=== PATIENT | female | born 1945 | race Caucasian/White ===

== ENCOUNTER 2017-10-27 17:31 | Inpatient (IN) | payer MEDICARE ==
[2017-10-27 18:22] LABS: ADD MAN DIFF? NO
[2017-10-27 18:24] LABS: BASO # 0.1 x10^3/uL (0.0-0.2); BASO % 1 % (0-3); EOS # 0.2 x10^3/uL (0.0-0.7); EOS % 4 % (0-3); HEMATOCRIT 35.7 % (36.0-47.0); HEMOGLOBIN 12.4 g/dL (12.0-15.5); LYMPH % 24 % (24-48); MEAN CORPUSCULAR HEMOGLOBIN 29 pg (25-35); MEAN CORPUSCULAR HGB CONC 35 g/dL (31-37); MEAN CORPUSCULAR VOLUME 84 fL (79-100); MONO # 0.5 x10^3/uL (0.0-1.1); MONO % 12 % (0-9); NEUT # 2.4 x10^3uL (1.8-7.7); NEUT % 58 % (31-73); PLATELET COUNT 407 x10^3/uL (140-400); RED BLOOD COUNT 4.26 x10^6/uL (3.50-5.40); RED CELL DISTRIBUTION WIDTH 12.6 % (11.5-14.5); WHITE BLOOD COUNT 4.2 x10^3/uL (4.0-11.0)
[2017-10-27 18:27] LABS: BILIRUBIN,URINE NEGATIVE (NEG); CLARITY,URINE CLEAR; GLUCOSE,URINE NEGATIVE (NEG); NITRITE,URINE NEGATIVE (NEG); PROTEIN,URINE NEGATIVE (NEG-TRACE); UROBILINOGEN,URINE 0.2 mg/dL (0.2 mg/dL)
[2017-10-27 18:33] LABS: COLOR,URINE STRAW
[2017-10-27 18:35] LABS: BACTERIA,URINE 0 /HPF (0-FEW); RBC,URINE 0 /HPF (0-2); SQUAMOUS EPITHELIAL CELL,UR FEW /LPF; WBC,URINE 0 /HPF (0-4)
[2017-10-27 18:37] LABS: ANION GAP 7 (6-14); BLOOD UREA NITROGEN 13 mg/dL (7-20); BUN/CREATININE RATIO 13 (6-20); CALCIUM 9.3 mg/dL (8.5-10.1); CARBON DIOXIDE 29 mmol/L (21-32); CHLORIDE 92 mmol/L (98-107); GFR 54.5; GLUCOSE 142 mg/dL (70-99); POTASSIUM 3.5 mmol/L (3.5-5.1); SODIUM 128 mmol/L (136-145)
[2017-10-27 18:42] LABS: ALBUMIN 3.5 g/dL (3.4-5.0); ALBUMIN/GLOBULIN RATIO 0.9 (1.0-1.7); ALK PHOS 61 U/L (46-116); ALT (SGPT) 17 U/L (14-59); AST (SGOT) 19 U/L (15-37); TOTAL BILIRUBIN 0.3 mg/dL (0.2-1.0); TOTAL PROTEIN 7.2 g/dL (6.4-8.2)
[2017-10-27 18:48] LABS: NT-PRO BNP 158 pg/mL (0-124)
[2017-10-27 18:52] LABS: TROPONINI < 0.017 ng/mL (0.000-0.055)
[2017-10-27] MEDS: MECLIZINE HCL 12.5 MG TABLET. PO (18:54)
[2017-10-27] MEDS: IV NORMAL SALINE 1000ML BAG 1,000 ML IV (19:56)
[2017-10-27] MEDS ORDERED: ONDANSETRON PF 4 MG/2 ML VIAL. IV (20:00)
[2017-10-27 20:03] LABS: THYROID STIM HORMONE (TSH) 2.904 uIU/mL (0.358-3.74)
[2017-10-28 04:25] LABS: ADD MAN DIFF? NO
[2017-10-28 04:30] LABS: BASO # 0.1 x10^3/uL (0.0-0.2); BASO % 1 % (0-3); EOS # 0.2 x10^3/uL (0.0-0.7); EOS % 5 % (0-3); HEMATOCRIT 35.6 % (36.0-47.0); HEMOGLOBIN 12.3 g/dL (12.0-15.5); LYMPH # 1.2 x10^3/uL (1.0-4.8); LYMPH % 29 % (24-48); MEAN CORPUSCULAR HEMOGLOBIN 29 pg (25-35); MEAN CORPUSCULAR HGB CONC 35 g/dL (31-37); MEAN CORPUSCULAR VOLUME 85 fL (79-100); MONO # 0.5 x10^3/uL (0.0-1.1); MONO % 14 % (0-9); NEUT % 51 % (31-73); PLATELET COUNT 410 x10^3/uL (140-400); RED BLOOD COUNT 4.21 x10^6/uL (3.50-5.40); RED CELL DISTRIBUTION WIDTH 12.9 % (11.5-14.5); WHITE BLOOD COUNT 3.9 x10^3/uL (4.0-11.0)
[2017-10-28 04:48] LABS: ANION GAP 7 (6-14); BLOOD UREA NITROGEN 9 mg/dL (7-20); CALCIUM 9.8 mg/dL (8.5-10.1); CARBON DIOXIDE 27 mmol/L (21-32); CHLORIDE 99 mmol/L (98-107); CREATININE 0.8 mg/dL (0.6-1.0); GFR 70.5; GLUCOSE 102 mg/dL (70-99); POTASSIUM 4.3 mmol/L (3.5-5.1); SODIUM 133 mmol/L (136-145)
[2017-10-28] MEDS: metroNIDAZOLE 500 MG TABLET PO ×3 (09:12→21:37)
[2017-10-28] MEDS: LEVOTHYROXINE 75 MCG TABLET PO (09:13)
[2017-10-28] MEDS: LOSARTAN POTASSIUM 50 MG TABLET. PO (09:13)
[2017-10-28] MEDS: CIPROFLOXACIN HCL 250 MG TABLET. PO ×2 (09:13→20:24)
[2017-10-28] MEDS: PANTOPRAZOLE 40 MG TABLET.DR. PO (12:13)
[2017-10-28] MEDS: FLUTICASONE 50MCG/NASAL SPRAY 16GM BOTTLE. NS (12:14)
[2017-10-28] MEDS: ATORVASTATIN CALCIUM 20 MG TABLET PO (20:23)
[2017-10-28] MEDS: LACTOBACILLUS RHAMNOSUS GG 1 CAPSULE. PO (20:24)
[2017-10-29] MEDS: LEVOTHYROXINE 75 MCG TABLET PO (06:21)
[2017-10-29] MEDS: metroNIDAZOLE 500 MG TABLET PO ×2 (06:21→13:31)
[2017-10-29] MEDS: PANTOPRAZOLE 40 MG TABLET.DR. PO (06:21)
[2017-10-29] MEDS: FLUTICASONE 50MCG/NASAL SPRAY 16GM BOTTLE. NS (09:55)
[2017-10-29] MEDS: LACTOBACILLUS RHAMNOSUS GG 1 CAPSULE. PO (09:56)
[2017-10-29] MEDS: CIPROFLOXACIN HCL 250 MG TABLET. PO (09:56)
[2017-10-29] MEDS: LOSARTAN POTASSIUM 50 MG TABLET. PO (09:56)
== END 2017-10-29 14:10 | disposition home or self-care (01) | DRG 391 ==
LOC: ER 17:31 → 5 NORTH 19:30
PROVIDERS: Family Medicine
DX: K57.92 Diverticulitis of intestine, part unspecified, without perforation or abscess without bleeding (principal); G93.41 Metabolic encephalopathy; E86.1 Hypovolemia; E87.1 Hypo-osmolality and hyponatremia; E03.9 Hypothyroidism, unspecified; E78.00 Pure hypercholesterolemia, unspecified; E78.5 Hyperlipidemia, unspecified; I10 Essential (primary) hypertension; K21.9 Gastro-esophageal reflux disease without esophagitis; Z88.6 Allergy status to analgesic agent; Z91.012 Allergy to eggs; Z88.2 Allergy status to sulfonamides; Z88.8 Allergy status to other drugs, medicaments and biological substances; Z91.09 Other allergy status, other than to drugs and biological substances; Z90.49 Acquired absence of other specified parts of digestive tract
CPT/HCPCS: 36415; 70450; 71045; 80048; 80053; 81001; 83880; 84300; 84443; 84484; 85025; 93005; 96360; 96361; 97161-GP; 99285; 99285-25; J7030; J8597

== ENCOUNTER → 2018-06-13 | Outpatient (CLI) | payer MEDICARE ==
[2017-10-29 11:00] VITALS: BP 145/60
[~2018-06-13] MED LIST: AMLO10TA6 PO; ATOR20TA58 PO; CIPR500T94 PO; FENO145T30 PO; FLUT16SP NS; HYDR25TA9 PO; LEVO75TA5 PO; LOSA50TA7 PO; MELO15TA23 PO; METR500T PO; OMEP20CA9 PO
--- NOTE | 2018-06-13 17:18 | CARD ---
MR#: [id number] Date of Study: 06/13/2018 Ordering Physician: CURLY QUIROGA, Referring Physician: CURLY QUIROGA, Tech: Penny Ji [facility] APPROVED REPORT EXAM: Two-dimensional and M-mode echocardiogram with Doppler and color Doppler. Other Information Quality : GoodHR: 65bpm Rhythm : NSR INDICATION Murmur 2D DIMENSIONS RVDd2.2 (2.9-3.5cm)Left Atrium(2D)2.6 (1.6-4.0cm) IVSd0.8 (0.7-1.1cm)Aortic Root(2D)2.9 (2.0-3.7cm) LVDd3.9 (3.9-5.9cm)LVOT Diameter1.8 (1.8-2.4cm) PWd1.0 (0.7-1.1cm)LVDs1.6 (2.5-4.0cm) FS (%) 57.8 %SV57.1 ml LVEF(%)70.0 (>50%) M-Mode DIMENSIONS Left Atrium(MM)2.54 (2.5-4.0cm)Aortic Root2.86 (2.2-3.7cm) Aortic Valve AoV Peak [place].172.6cm/sAoV VTI37.5cm AO Peak GR.11.9mmHgLVOT Peak [place].120.2cm/s AO Mean GR.6mmHgAVA (VMAX)1.74cm2 JOSE (VTI)1.21ez1LU P 1/2 Ntbj671vg Mitral Valve MV E Hselpzvy01.0cm/sMV E Peak Gr.3mmHg MV DECEL [id number] A Bwqmqpkv81.2cm/s MV E Mean Gr.1mmHgE/A Ratio0.8 MV A [id number] Pulmonary Valve PV Peak Nacerjwp26.0cm/s Tricuspid Valve TR P. Llkwstza780te/sRAP GTTHFHMG4zdRt TR Peak Gr.73wpKpSZIZ54pjBl Pulmonary Vein S1 Mbthsboh18.6cm/sD2 Fjogbplj35.8cm/s PVa enihimhz385epnt LEFT VENTRICLE The left ventricle is normal size. There is normal left ventricular wall thickness. The left ventricu lar systolic function is normal and the ejection fraction is within normal range. The left ventricle is hyperdynamic. The Ejection Fraction is 70%. There is normal LV segmental wall motion. The left miguel tricular diastolic function and filling is normal for age. RIGHT VENTRICLE The right ventricle is normal size. There is normal right ventricular wall thickness. The right ventr icular systolic function is normal. ATRIA The left atrium size is normal. The right atrium size is normal. The interatrial septum is intact wit h no evidence for an atrial septal defect or patent foramen ovale as noted on 2-D or Doppler imaging. AORTIC VALVE The aortic valve is normal in structure and function. The aortic valve is trileaflet. Doppler and Col or Flow revealed trace aortic regurgitation. There is no significant aortic valvular stenosis. MITRAL VALVE The mitral valve is normal in structure There is no evidence of mitral valve prolapse. There is no mi tral valve stenosis. Doppler and Color-flow revealed trace mitral regurgitation. TRICUSPID VALVE The tricuspid valve is normal in structure Doppler and Color Flow revealed mild tricuspid regurgitati on. The PA pressure was estimated at 26 mmHg. There is no tricuspid valve prolapse or vegetation. The re is no tricuspid valve stenosis. PULMONIC VALVE The pulmonary valve is normal in structure and function. Doppler and Color Flow revealed no pulmonic valvular regurgitation. There is no pulmonic valvular stenosis. GREAT VESSELS The aortic root is normal in size. The ascending aorta is normal in size. PERICARDIAL EFFUSION There is no evidence of significant pericardial effusion. Critical Notification Critical Value: No <Conclusion> The left ventricular systolic function is normal and the ejection fraction is within normal range. The left ventricle is hyperdynamic. The Ejection Fraction is 70%. The left atrium size is normal. The right atrium size is normal. The aortic valve is normal in structure and function. The aortic valve is trileaflet. Doppler and Color Flow revealed trace aortic regurgitation. Doppler and Color-flow revealed trace mitral regurgitation. Doppler and Color Flow revealed mild tricuspid regurgitation. The PA pressure was estimated at 26 mmHg. The pulmonary valve is normal in structure and function. There is no evidence of significant pericardial effusion. Signed by : Ronald Shore MD Electronically Approved : 06/13/2018 17:17:59
== END | disposition home or self-care (01) ==
LOC: ECHO 12:33
PROVIDERS: ATTEND Nurse Practitioner Family
DX: R01.1 Cardiac murmur, unspecified (principal); I35.1 Nonrheumatic aortic (valve) insufficiency; I34.0 Nonrheumatic mitral (valve) insufficiency; I07.1 Rheumatic tricuspid insufficiency; E78.00 Pure hypercholesterolemia, unspecified; I10 Essential (primary) hypertension; E03.9 Hypothyroidism, unspecified; Z90.49 Acquired absence of other specified parts of digestive tract
CPT/HCPCS: 93306

== ENCOUNTER 2019-05-19 12:35 | Inpatient (IN) | payer MEDICARE ==
[~2019-05-19] VITALS: Ht 160 cm; Wt 69.4 kg
[~2019-05-19 12:35] MED LIST changes: -AMLO10TA6 PO; +AMLO10TA8 PO; +HYDR-2145 PO; -HYDR25TA9 PO; +LOSA-73 PO; -LOSA50TA7 PO; +OMEP20CA10 PO; -OMEP20CA9 PO
--- NOTE | 2019-05-19 13:01 | PHYS DOC ---
Past Medical History Past Medical History: Diverticulitis, GERD, High Cholesterol, Hypertension, Hypothyroid, Pancreatitis Past Surgical History: Cholecystectomy, Other Additional Past Surgical Histo: hiatal hernia Alcohol Use: None Drug Use: None Adult General Chief Complaint Chief Complaint: [facility] Patient is a 74 year old female that presents with dizziness, shakiness, and syncopal episodes ongoing since May 07. The patient had an episode at her doctor's office over to the emergency room. The patient states she's had multiple episodes since that time. Denies chest pain, rates her pain 0 out of 10 in severity. Denies any other symptoms. No interventions prior to arrival. Review of Systems Review of Systems Constitutional: Denies fever or chills. Reports dizziness, and shakiness. Eyes: Denies change in visual acuity, redness, or eye pain [] HENT: Denies nasal congestion or sore throat [] Respiratory: Denies cough or shortness of breath [] Cardiovascular: No additional information not addressed in HPI [] GI: Denies abdominal pain, nausea, vomiting, bloody stools or diarrhea [] : Denies dysuria or hematuria [] Musculoskeletal: Denies back pain or joint pain [] Integument: Denies rash or skin lesions [] Neurologic: Denies headache, focal weakness or sensory changes [] Endocrine: Denies polyuria or polydipsia [] Complete systems were reviewed and found to be within normal limits, except as documented in this note. Current Medications Current Medications Current Medications Medications (Trade) Dose Ordered Sig/Marcy Start Time Stop Time Status Last Admin Dose Admin Labetalol HCl (Normodyne Iv Push) 10 mg 1X ONCE 05/19/19 14:15 05/19/19 14:16 DC Allergies Allergies Allergies Coded Allergies Type Severity Reaction Last Updated Verified feathers Allergy Severe SOA 05/19/19 Yes Sulfa (Sulfonamide Antibiotics) Allergy Intermediate rash 05/19/19 Yes azelastine Allergy Intermediate 05/19/19 Yes cephalexin Allergy Intermediate 05/19/19 Yes egg Allergy Intermediate diarrhea 05/19/19 Yes nitrofurantoin Allergy Intermediate 05/19/19 Yes aspirin Adverse Reaction Mild irritates stomach 05/19/19 Yes esomeprazole Adverse Reaction Unknown lightheaded 05/19/19 Yes Physical Exam Physical Exam Constitutional: Well developed, well nourished, no acute distress, non-toxic appearance. [] HENT: Normocephalic, atraumatic, bilateral external ears normal, oropharynx moist, no oral exudates, nose normal. [] Eyes: PERRLA, EOMI, conjunctiva normal, no discharge. [] Neck: Normal range of motion, no tenderness, supple, no stridor. [] Cardiovascular:Heart rate regular rhythm, no murmur [] Lungs & Thorax: Bilateral breath sounds clear to auscultation [] Abdomen: Bowel sounds normal, soft, no tenderness, no masses, no pulsatile masses. [] Skin: Warm, dry, no erythema, no rash. [] Back: No tenderness, no CVA tenderness. [] Extremities: No tenderness, no cyanosis, no clubbing, ROM intact, no edema. [] Neurologic: Alert and oriented X 3, normal motor function, normal sensory function, no focal deficits noted. [] Psychologic: Affect normal, judgement normal, mood normal. [] Current Patient Data Vital Signs Vital Signs Date Time Temp Pulse Resp B/P (MAP) Pulse Ox O2 Delivery O2 Flow Rate FiO2 05/19/19 12:45 98.2 92 20 190/81 (117) 98 Room Air 98.2 Lab Values Laboratory Tests Test 05/19/19 12:42 05/19/19 12:59 Urine Collection Type Unknown Urine Color Yellow Urine Clarity Clear Urine pH 6.5 Urine Specific [place] 1.010 Urine Protein Negative mg/dL (NEG-TRACE) Urine Glucose (UA) Negative mg/dL (NEG) Urine Ketones (Stick) Negative mg/dL (NEG) Urine Blood Negative (NEG) Urine Nitrite Negative (NEG) Urine Bilirubin Negative (NEG) Urine Urobilinogen Dipstick 0.2 mg/dL (0.2 mg/dL) Urine Leukocyte Esterase Negative (NEG) Urine RBC Occ /HPF (0-2) Urine WBC 1-4 /HPF (0-4) Urine Squamous Epithelial Cells Few /LPF Urine Transitional Epithelial Cells Few /LPF Urine Bacteria 0 /HPF (0-FEW) White Blood Count 6.2 x10^3/uL (4.0-11.0) Red Blood Count 4.63 x10^6/uL (3.50-5.40) Hemoglobin 13.2 g/dL (12.0-15.5) Hematocrit 39.5 % (36.0-47.0) Mean Corpuscular Volume 85 fL (79-100) Mean Corpuscular Hemoglobin 29 pg (25-35) Mean Corpuscular Hemoglobin Concent 34 g/dL (31-37) Red Cell Distribution Width 13.3 % (11.5-14.5) Platelet Count 378 x10^3/uL (140-400) Neutrophils (%) (Auto) 64 % (31-73) Lymphocytes (%) (Auto) 25 % (24-48) Monocytes (%) (Auto) 9 % (0-9) Eosinophils (%) (Auto) 2 % (0-3) Basophils (%) (Auto) 1 % (0-3) Neutrophils # (Auto) 4.0 x10^3/uL (1.8-7.7) Lymphocytes # (Auto) 1.5 x10^3/uL (1.0-4.8) Monocytes # (Auto) 0.6 x10^3/uL (0.0-1.1) Eosinophils # (Auto) 0.1 x10^3/uL (0.0-0.7) Basophils # (Auto) 0.1 x10^3/uL (0.0-0.2) Sodium Level 132 mmol/L (136-145) L Potassium Level 4.0 mmol/L (3.5-5.1) Chloride Level 96 mmol/L (98-107) L Carbon Dioxide Level 26 mmol/L (21-32) Anion Gap 10 (6-14) Blood Urea Nitrogen 19 mg/dL (7-20) Creatinine 1.0 mg/dL (0.6-1.0) Estimated GFR (Cockcroft-Gault) 54.2 BUN/Creatinine Ratio 19 (6-20) Glucose Level 96 mg/dL (70-99) Calcium Level 10.4 mg/dL (8.5-10.1) H Total Bilirubin 0.5 mg/dL (0.2-1.0) Aspartate Amino Transferase (AST) 19 U/L (15-37) Alanine Aminotransferase (ALT) 20 U/L (14-59) Alkaline Phosphatase 61 U/L (46-116) Troponin I Quantitative < 0.017 ng/mL (0.000-0.055) Total Protein 7.9 g/dL (6.4-8.2) Albumin 4.3 g/dL (3.4-5.0) Albumin/Globulin Ratio 1.2 (1.0-1.7) Laboratory Tests 05/19/19 12:59 Laboratory Tests 05/19/19 12:59 EKG EKG EKG interpreted by Dr. Rubio Baugh with rate of 80. Patient has leftward axis. No STEMI.[] Radiology/Procedures Radiology/Procedures [][facility] [address] [place] [address] IMAGING REPORT Signed PATIENT: MARY ANN KAY GACCOUNT: [id number] : 1945 LOCATION: ER AGE: 74 SEX: F EXAM STATUS: REG ER ORD. PHYSICIAN: RACHAEL AREVALO APRN REASON: dizziness PROCEDURE: CHEST PA & LATERAL CHEST PA LATERAL Clinical indications: Dizziness. Comparison: May 19, 2019. Findings: No acute lung infiltrate or pleural effusion or pulmonary edema or lung mass or pneumothorax is seen. The heart size, pulmonary vasculature, mediastinum and both alla are unremarkable. The osseous structures appear intact. Postoperative changes of the epigastric region are seen. Impression: No acute radiographic abnormality is seen. Electronically signed by: Andrey Krishna MD (05/19/2019 1:49 PM) [facility] DICTATED and SIGNED BY: ANDREY KRISHNA MD DATE: 05/19/19 1349 Course & Med Decision Making Course & Med Decision Making Pertinent Labs and Imaging studies reviewed. (See chart for details) BP was 190/81 in room on initial assessment. Patient appears from story to be having syncopal episodes. Will get labs, ekg, and chest x-ray. Did not give ASA due to allergy. Labs are unremarkable. Imaging is unremarkable. Will give Labetalol for blood pressure. Will page Dr. Sanchez for admission. Discussed with Dr. Sanchez who will admit. Will consult cards. Andrés Disclaimer Dragon Disclaimer This electronic medical record was generated, in whole or in part, using a voice recognition dictation system. Departure Departure Impression: Primary Impression: Dizziness Additional Impression: Hypertensive urgency Disposition: ADMITTED INPATIENT Admitting Physician: ESTHELA Condition: GUARDED Referrals: JOYCE AGUILLON D.O. (PCP) The HEART Score for CP Pts HEART Score for Chest Pain: HEART Score for Chest Pain Response (Comments) Value History Moderately Suspicious 1 ECG Normal 0 Age > 65 2 Risk Factors >3 Risk Factors or Hx CAD 2 Troponin < Normal Limit 0 Total 5 Risk Factors: Risk Factors: DM, Current or recent (<one month) smoker, HTN, HLP, family history of CAD, obesity. Risk Scores: Score 0 - 3: 2.5% MACE over next 6 weeks - Discharge Home Score 4 - 6: 20.3% MACE over next 6 weeks - Admit for Clinical Observation Score 7 - 10: 72.7% MACE over next 6 weeks - Early Invasive Strategies Problem Qualifiers RACHAEL AREVALO APRN May 19, 2019 13:01
[2019-05-19 13:05] LABS: BILIRUBIN,URINE NEGATIVE (NEG); CLARITY,URINE CLEAR; COLOR,URINE YELLOW; NITRITE,URINE NEGATIVE (NEG); PH,URINE 6.5; PROTEIN,URINE NEGATIVE (NEG-TRACE); UROBILINOGEN,URINE 0.2 mg/dL (0.2 mg/dL)
[2019-05-19 13:09] LABS: BASO # 0.1 x10^3/uL (0.0-0.2); BASO % 1 % (0-3); EOS # 0.1 x10^3/uL (0.0-0.7); EOS % 2 % (0-3); HEMATOCRIT 39.5 % (36.0-47.0); HEMOGLOBIN 13.2 g/dL (12.0-15.5); LYMPH # 1.5 x10^3/uL (1.0-4.8); LYMPH % 25 % (24-48); MEAN CORPUSCULAR HEMOGLOBIN 29 pg (25-35); MEAN CORPUSCULAR HGB CONC 34 g/dL (31-37); MEAN CORPUSCULAR VOLUME 85 fL (79-100); MONO # 0.6 x10^3/uL (0.0-1.1); MONO % 9 % (0-9); NEUT % 64 % (31-73); PLATELET COUNT 378 x10^3/uL (140-400); RED BLOOD COUNT 4.63 x10^6/uL (3.50-5.40); RED CELL DISTRIBUTION WIDTH 13.3 % (11.5-14.5); WHITE BLOOD COUNT 6.2 x10^3/uL (4.0-11.0)
[2019-05-19 13:12] LABS: SQUAMOUS EPITHELIAL CELL,UR FEW /LPF
[2019-05-19 13:13] LABS: BACTERIA,URINE 0 /HPF (0-FEW); RBC,URINE OCC /HPF (0-2)
[2019-05-19 13:22] LABS: CALCIUM 10.4 mg/dL (8.5-10.1); GFR 54.2
[2019-05-19 13:28] LABS: ALBUMIN 4.3 g/dL (3.4-5.0); ALBUMIN/GLOBULIN RATIO 1.2 (1.0-1.7); TOTAL BILIRUBIN 0.5 mg/dL (0.2-1.0); TOTAL PROTEIN 7.9 g/dL (6.4-8.2)
--- NOTE | 2019-05-19 13:38 | EKG ---
[facility] [address] [place] [address] Test Date: 2019-05-19 Test Time: 12:48:38 Pat Name: MARY ANN KAY Department: Room: Gender: F Regulatory Submissions Associate: : 1945 Requested By: RACHAEL AREVALO Order Number: [id number] Reading MD: Measurements Intervals North Rate: 80 P: 34 DC: 158 QRS: -1 QRSD: 94 T: 8 QT: 368 QTc: 428 Interpretive Statements SINUS RHYTHM LEFTWARD AXIS QRS(T) CONTOUR ABNORMALITY CONSIDER ANTEROSEPTAL MYOCARDIAL DAMAGE POSSIBLY ABNORMAL ECG RI6.01 No previous ECG available for comparison
--- NOTE | 2019-05-19 13:52 | RAD ---
CHEST PA LATERAL Clinical indications: Dizziness. Comparison: May 19, 2019. Findings: No acute lung infiltrate or pleural effusion or pulmonary edema or lung mass or pneumothorax is seen. The heart size, pulmonary vasculature, mediastinum and both alla are unremarkable. The osseous structures appear intact. Postoperative changes of the epigastric region are seen. Impression: No acute radiographic abnormality is seen. Electronically signed by: Moo Krishna MD (05/19/2019 1:49 PM) [facility]
[2019-05-19] MEDS ORDERED: LABETALOL 20 MG/4 ML DISP.SYRIN. IVP ONE (14:15)
[2019-05-19] MEDS ORDERED: NITROGLYCERIN SUBLINGUAL 0.4 MG BOTTLE OF 25. SL PRN (14:30)
[2019-05-19] MEDS ORDERED: ONDANSETRON PF 4 MG/2 ML VIAL. IV PRN (14:30)
[2019-05-19] MEDS ORDERED: MORPHINE SULFATE 2 MG/ML VIAL. IV PRN (14:30)
[2019-05-19 15:15] VITALS: BP_SYST 150; BP_SYST 155; BP_SYST 156; BP_DIAS 71; BP_DIAS 72; BP_DIAS 73
[2019-05-19 19:40] VITALS: BP 166/79
--- NOTE | 2019-05-19 19:43 | HP ---
ADMIT DATE: 05/19/2019 CHIEF COMPLAINT: Lightheadedness, syncopal episodes. HISTORY OF PRESENT ILLNESS: The patient is a pleasant 74-year-old female who presented with lightheadedness. She has also been having syncopal episodes. She has associated shakiness. She also had some chest pain. She actually was told to go to the ER, she was at her primary care doctor when this initially occurred. While in the ER, she had a pressure of 190/100. She actually was scheduled to see a professor of biochemistry, Dr. Fernandez over the next couple of weeks, but I discussed the case with ER physician. We are going to admit the patient and consult Dr. Fernandez and get her blood pressure down. PAST MEDICAL HISTORY: Diverticulitis, GERD, hyperlipidemia, hypertension, hypothyroidism, pancreatitis, cholecystectomy, hiatal hernia. ALLERGIES: SULFA, ASPIRIN, CEPHALEXIN, EGGS, ESOMEPRAZOLE, FEATHERS AND NITROFURANTOIN. FAMILY HISTORY: Coronary artery disease. SOCIAL HISTORY: She does not drink, smoke or take drugs. MEDICATIONS: Reviewed, please refer to the MRAD. REVIEW OF SYSTEMS: GENERAL: No history of weight change, weakness or fevers. SKIN: No bruising, hair changes or rashes. EYES: No blurred, double or loss of vision. NOSE AND THROAT: No history of nosebleeds, hoarseness or sore throat. HEART: No history of palpitations, chest pain or shortness of breath on exertion. LUNGS: Denies cough, hemoptysis, wheezing or shortness of breath. GASTROINTESTINAL: Denies changes in appetite, nausea, vomiting, diarrhea or constipation. GENITOURINARY: No history of frequency, urgency, hesitancy or nocturia. NEUROLOGIC: The patient complains of intermittent dizziness. She complains of periodic syncope. PSYCHIATRIC: No history of panic, anxiety or depression. ENDOCRINE: No history of heat or cold intolerance, polyuria or polydipsia. EXTREMITIES: Denies muscle weakness, joint pain, pain on walking or stiffness. PHYSICAL EXAMINATION: VITALS: Her pressure is down from 190/100 to 155/71. GENERAL: No apparent distress. Alert and oriented. HEENT: Head is normocephalic, atraumatic, pupils were equally round and reactive to light and accommodation. NECK: Supple, no JVD, no thyromegaly was noted. LUNGS: Clear to auscultation in all lung suarez without rhonchi or wheezing. HEART: RRR, S1, S2 present. Peripheral pulses intact, no obvious murmurs were noted. ABDOMEN: Soft, nontender. Positive bowel sounds no organomegaly, normal bowel sounds. EXTREMITIES: Without any cyanosis, clubbing, or edema. Pedal pulses intact, Homans sign is negative. NEUROLOGIC: Normal speech, normal tone. A & O x3, moves all extremities, no obvious focal deficits. PSYCHIATRIC: Normal affect, normal mood. Stable. SKIN: No ulcerations or rashes, good skin turgor, no jaundice. VASCULAR: Good capillary refill, neurovascular bundle appears to be intact. LABORATORY DATA: Hematology is normal. Electrolytes are normal other than sodium 132 and chloride of 96. Urinalysis negative. Chest x-ray negative. ASSESSMENT AND PLAN: Hypertensive emergency, dizziness, and near syncope. The patient is being admitted. We will consult Cardiology, consult Neurology. Home meds, p.r.n. labetalol. PT, OT, DVT prophylaxis. Full code. PEDRO MAJOR DO DR: GUERA/perez JOB#: [id number] / [id number]
[2019-05-19] MEDS: ATORVASTATIN CALCIUM 20 MG TABLET PO SCH (20:25)
[2019-05-19] MEDS: LABETALOL 20 MG/4 ML DISP.SYRIN. IVP PRN (20:28)
[2019-05-19] MEDS: MELOXICAM 7.5 MG TABLET PO SCH (21:15)
[2019-05-19] MEDS: FENOFIBRATE 54 MG TABLET. PO SCH (21:15)
[2019-05-19 23:10] VITALS: BP 141/69
[2019-05-20] VITALS (8 sets, daily range): BP systolic 128–171; BP diastolic 53–72
[2019-05-20] MEDS: PANTOPRAZOLE 40 MG TABLET.DR. PO SCH (07:01)
[2019-05-20] MEDS: LEVOTHYROXINE 75 MCG TABLET PO SCH (07:01)
--- NOTE | 2019-05-20 07:15 | PDOC ---
PROGRESS NOTES History of Present Illness History of Present Illness ASSESSMENT AND PLAN: Hypertensive emergency, remains labile dizziness, near syncope. mild hyponatremia hyperlipidemia mild hyponatremia admitted. consult Cardiology, consult Neurology. Home meds, p.r.n. labetalol. PT, OT, DVT prophylaxis. Full code. tele bed neurochecks q 4 hrs doppler carotids follow italo flp 05/21 38 min pt exam, chart review, > 50% of time spent with exam, chart review, pt care coordination Vitals Vitals Vital Signs Date Time Temp Pulse Resp B/P (MAP) Pulse Ox O2 Delivery O2 Flow Rate FiO2 05/20/19 03:44 98.0 66 16 128/53 (78) 97 Room Air 98.0 Physical Exam Physical Exam HEENT: Head is normocephalic, atraumatic, pupils were equally round and reactive to light and accommodation. NECK: Supple, no JVD, no thyromegaly was noted. LUNGS: Clear to auscultation in all lung suarez without rhonchi or wheezing. HEART: RRR, S1, S2 present. Peripheral pulses intact, no obvious murmurs were noted. ABDOMEN: Soft, nontender. Positive bowel sounds no organomegaly, normal bowel sounds. EXTREMITIES: Without any cyanosis, clubbing, or edema. Pedal pulses intact, Homans sign is negative. NEUROLOGIC: Normal speech, normal tone. A & O x3, moves all extremities, no obvious focal deficits. PSYCHIATRIC: Normal affect, normal mood. Stable. SKIN: No ulcerations or rashes, good skin turgor, no jaundice. VASCULAR: Good capillary refill, neurovascular bundle appears to be intact. General: Alert, Oriented X3, Cooperative, No acute distress Heart: Regular rate, Normal S1, Normal S2 Lungs: Clear Abdomen: Soft, No tenderness Extremities: No cyanosis Skin: No significant lesion Labs LABS TATUS: REG ER ORD. PHYSICIAN: REMINGTON OZUNA DO REASON: dizziness PROCEDURE: CT HEAD WO CONTRAST EXAM: Head CT without contrast. HISTORY: Dizziness. TECHNIQUE: Computed tomographic images of the head were obtained without contrast. *One or more of the following individualized dose reduction techniques were utilized for this examination: 1. Automated exposure control. 2. Adjustment of the mA and/or kV according to patient size. 3. Use of iterative reconstruction technique. COMPARISON: None. FINDINGS: There is no acute or subacute extra-axial or intraparenchymal hemorrhage. There is no mass effect or midline shift. There is no hydrocephalus. There are areas of decreased attenuation within the cerebral white matter, nonspecific and likely related to chronic small vessel disease. There is cerebral and cerebellar volume loss. The visualized portions of the orbits, paranasal sinuses and mastoid air cells are unremarkable. No suspicious calvarial lesion is seen. IMPRESSION: No acute intracranial findings. Electronically signed by: Sue Villar MD (10/27/2017 7:38 PM) [facility] Tricuspid Valve TR P. Velocity 240cm/s RAP ESTIMATE 3mmHg TR Peak Gr. 23mmHg RVSP 26mmHg Pulmonary Vein S1 Velocity 49.6cm/s D2 Velocity 30.8cm/s PVa duration 101msec LEFT VENTRICLE The left ventricle is normal size. There is normal left ventricular wall thickness. The left ventricular systolic function is normal and the ejection fraction is within normal range. The left ventricle is hyperdynamic. The Ejection Fraction is 70%. There is normal LV segmental wall motion. The left ventricular diastolic function and filling is normal for age. RIGHT VENTRICLE The right ventricle is normal size. There is normal right ventricular wall thickness. The right ventricular systolic function is normal. ATRIA The left atrium size is normal. The right atrium size is normal. The interatrial septum is intact with no evidence for an atrial septal defect or patent foramen ovale as noted on 2-D or Doppler imaging. AORTIC VALVE The aortic valve is normal in structure and function. The aortic valve is tril eaflet. Doppler and Color Flow revealed trace aortic regurgitation. There is no significant aortic valvular stenosis. MITRAL VALVE The mitral valve is normal in structure There is no evidence of mitral valve prolapse. There is no mitral valve stenosis. Doppler and Color-flow revealed trace mitral regurgitation. TRICUSPID VALVE The tricuspid valve is normal in structure Doppler and Color Flow revealed mild tricuspid regurgitation. The PA pressure was estimated at 26 mmHg. There is no tricuspid valve prolapse or vegetation. There is no tricuspid valve stenosis. PULMONIC VALVE The pulmonary valve is normal in structure and function. Doppler and Color Flow revealed no pulmonic valvular regurgitation. There is no pulmonic valvular stenosis. GREAT VESSELS The aortic root is normal in size. The ascending aorta is normal in size. PERICARDIAL EFFUSION There is no evidence of significant pericardial effusion. Critical Notification Critical Value: No <Conclusion> The left ventricular systolic function is normal and the ejection fraction is within normal range. The left ventricle is hyperdynamic. The Ejection Fraction is 70%. The left atrium size is normal. The right atrium size is normal. The aortic valve is normal in structure and function. The aortic valve is trileaflet. Doppler and Color Flow revealed trace aortic regurgitation. Doppler and Color-flow revealed trace mitral regurgitation. Doppler and Color Flow revealed mild tricuspid regurgitation. The PA pressure was estimated at 26 mmHg. The pulmonary valve is normal in structure and function. There is no evidence of significant pericardial effusion. Signed by : Ronald Shore MD Electronically Approved : 06/13/2018 17:17:59 DICTATED and SIGNED BY: RONALD SHORE MD DATE: 06/13/18 1717 APPROVED REPORT EXAM: Two-dimensional and M-mode echocardiogram with Doppler and color Doppler. Other Information Quality : Good HR: 65bpm Rhythm : NSR INDICATION Murmur 2D DIMENSIONS RVDd 2.2 (2.9-3.5cm) Left Atrium(2D) 2.6 (1.6-4.0cm) IVSd 0.8 (0.7-1.1cm) Aortic Root(2D) 2.9 (2.0-3.7cm) LVDd 3.9 (3.9-5.9cm) LVOT Diameter 1.8 (1.8-2.4cm) PWd 1.0 (0.7-1.1cm) LVDs 1.6 (2.5-4.0cm) FS (%) 57.8 % SV 57.1 ml LVEF(%) 70.0 (>50%) M-Mode DIMENSIONS Left Atrium(MM) 2.54 (2.5-4.0cm) Aortic Root 2.86 (2.2-3.7cm) Aortic Valve AoV Peak [place]. 172.6cm/s AoV VTI 37.5cm AO Peak GR. 11.9mmHg LVOT Peak [place]. 120.2cm/s AO Mean GR. 6mmHg JOSE (VMAX) 1.74cm2 JOSE (VTI) 1.70cm2 AI P 1/2 Time 939ms Mitral Valve MV E Velocity 81.0cm/s MV E Peak Gr. 3mmHg MV DECEL TIME 220ms MV A Velocity 98.2cm/s MV E Mean Gr. 1mmHg E/A Ratio 0.8 MV A Duration 111ms Pulmonary Valve PV Peak Velocity 97.0cm/s Tricuspid Valve TR P. Velocity 240cm/s RAP ESTIMATE 3mmHg TR Peak Gr. 23mmHg RVSP 26mmHg Pulmonary Vein S1 Velocity 49.6cm/s D2 Velocity 30.8cm/s PVa duration 101msec LEFT VENTRICLE The left ventricle is normal size. There is normal left ventricular wall thickness. The left ventricular systolic function is normal and the ejection fraction is within normal range. The left ventricle is hyperdynamic. The Ej ection Fraction is 70%. There is normal LV segmental wall motion. The left ventricular diastolic function and filling is normal for age. RIGHT VENTRICLE The right ventricle is normal size. There is normal right ventricular wall thickness. The right ventricular systolic function is normal. ATRIA The left atrium size is normal. The right atrium size is normal. The interatrial septum is intact with no evidence for an atrial septal defect or patent foramen ovale as noted on 2-D or Doppler imaging. AORTIC VALVE The aortic valve is normal in structure and function. The aortic valve is trileaflet. Doppler and Color Flow revealed trace aortic regurgitation. There is no significant aortic valvular stenosis. MITRAL VALVE The mitral valve is normal in structure There is no evidence of mitral valve prolapse. There is no mitral valve stenosis. Doppler and Color-flow revealed trace mitral regurgitation. TRICUSPID VALVE The tricuspid valve is normal in structure Doppler and Color Flow revealed mild tricuspid regurgitation. The PA pressure was estimated at 26 mmHg. There is no tricuspid valve prolapse or vegetation. There is no tricuspid valve stenosis. PULMONIC VALVE The pulmonary valve is normal in structure and function. Doppler and Color Flow revealed no pulmonic valvular regurgitation. There is no pulmonic valvular stenosis. GREAT VESSELS The aortic root is normal in size. The ascending aorta is normal in size. PERICARDIAL EFFUSION There is no evidence of significant pericardial effusion. Critical Notification Critical Value: No <Conclusion> The left ventricular systolic function is normal and the ejection fraction is within normal range. The left ventricle is hyperdynamic. The Ejection Fraction is 70%. The left atrium size is normal. The right atrium size is normal. The aortic valve is normal in structure and function. The aortic valve is trileaflet. Doppler and Color Flow revealed trace aortic regurgitation. Doppler and Color-flow revealed trace mitral regurgitation. Doppler and Color Flow revealed mild tricuspid regurgitation. The PA pressure was estimated at 26 mmHg. The pulmonary valve is normal in structure and function. There is no evidence of significant pericardial effusion. Signed by : Ronald Shore MD Electronically Approved : 06/13/2018 17:17:59 CHEST PA LATERAL Clinical indications: Dizziness. Comparison: May 19, 2019. Findings: No acute lung infiltrate or pleural effusion or pulmonary edema or lung mass or pneumothorax is seen. The heart size, pulmonary vasculature, mediastinum and both alla are unremarkable. The osseous structures appear intact. Postoperative changes of the epigastric region are seen. Impression: No acute radiographic abnormality is seen. Electronically signed by: Moo Krishna MD (05/19/2019 1:49 PM) [facility] Laboratory Tests Test 05/19/19 12:42 05/19/19 12:59 05/19/19 17:45 05/19/19 20:30 Urine Collection Type Unknown Urine Color Yellow Urine Clarity Clear Urine pH 6.5 Urine Specific Ponce 1.010 Urine Protein Negative mg/dL (NEG-TRACE) Urine Glucose (UA) Negative mg/dL (NEG) Urine Ketones (Stick) Negative mg/dL (NEG) Urine Blood Negative (NEG) Urine Nitrite Negative (NEG) Urine Bilirubin Negative (NEG) Urine Urobilinogen Dipstick 0.2 mg/dL (0.2 mg/dL) Urine Leukocyte Esterase Negative (NEG) Urine RBC Occ /HPF (0-2) Urine WBC 1-4 /HPF (0-4) Urine Squamous Epithelial Cells Few /LPF Urine Transitional Epithelial Cells Few /LPF Urine Bacteria 0 /HPF (0-FEW) White Blood Count 6.2 x10^3/uL (4.0-11.0) Red Blood Count 4.63 x10^6/uL (3.50-5.40) Hemoglobin 13.2 g/dL (12.0-15.5) Hematocrit 39.5 % (36.0-47.0) Mean Corpuscular Volume 85 fL (79-100) Mean Corpuscular Hemoglobin 29 pg (25-35) Mean Corpuscular Hemoglobin Concent 34 g/dL (31-37) Red Cell Distribution Width 13.3 % (11.5-14.5) Platelet Count 378 x10^3/uL (140-400) Neutrophils (%) (Auto) 64 % (31-73) Lymphocytes (%) (Auto) 25 % (24-48) Monocytes (%) (Auto) 9 % (0-9) Eosinophils (%) (Auto) 2 % (0-3) Basophils (%) (Auto) 1 % (0-3) Neutrophils # (Auto) 4.0 x10^3/uL (1.8-7.7) Lymphocytes # (Auto) 1.5 x10^3/uL (1.0-4.8) Monocytes # (Auto) 0.6 x10^3/uL (0.0-1.1) Eosinophils # (Auto) 0.1 x10^3/uL (0.0-0.7) Basophils # (Auto) 0.1 x10^3/uL (0.0-0.2) Sodium Level 132 mmol/L (136-145) Potassium Level 4.0 mmol/L (3.5-5.1) Chloride Level 96 mmol/L (98-107) Carbon Dioxide Level 26 mmol/L (21-32) Anion Gap 10 (6-14) Blood Urea Nitrogen 19 mg/dL (7-20) Creatinine 1.0 mg/dL (0.6-1.0) Estimated GFR (Cockcroft-Gault) 54.2 BUN/Creatinine Ratio 19 (6-20) Glucose Level 96 mg/dL (70-99) Calcium Level 10.4 mg/dL (8.5-10.1) Total Bilirubin 0.5 mg/dL (0.2-1.0) Aspartate Amino Transf (AST/SGOT) 19 U/L (15-37) Alanine Aminotransferase (ALT/SGPT) 20 U/L (14-59) Alkaline Phosphatase 61 U/L (46-116) Troponin I Quantitative < 0.017 ng/mL (0.000-0.055) < 0.017 ng/mL (0.000-0.055) < 0.017 ng/mL (0.000-0.055) Total Protein 7.9 g/dL (6.4-8.2) Albumin 4.3 g/dL (3.4-5.0) Albumin/Globulin Ratio 1.2 (1.0-1.7) Assessment and Plan Assessmemt and Plan Problems Medical Problems: (1) Dizziness Status: Acute (2) Hypertensive urgency Status: Acute Past Medical History Past Medical History Past Medical History: Diverticulitis, GERD, High Cholesterol, Hypertension, Hypothyroid, Pancreatitis Past Surgical History: Cholecystectomy, Other Additional Past Surgical Histo: hiatal hernia Alcohol Use: None Drug Use: None Comment Review of Relevant I have reviewed the following items georgina (where applicable) has been applied. Labs Laboratory Tests Test 05/19/19 12:42 05/19/19 12:59 05/19/19 17:45 05/19/19 20:30 Urine Collection Type Unknown Urine Color Yellow Urine Clarity Clear Urine pH 6.5 Urine Specific [place]once 1.010 Urine Protein Negative mg/dL (NEG-TRACE) Urine Glucose (UA) Negative mg/dL (NEG) Urine Ketones (Stick) Negative mg/dL (NEG) Urine Blood Negative (NEG) Urine Nitrite Negative (NEG) Urine Bilirubin Negative (NEG) Urine Urobilinogen Dipstick 0.2 mg/dL (0.2 mg/dL) Urine Leukocyte Esterase Negative (NEG) Urine RBC Occ /HPF (0-2) Urine WBC 1-4 /HPF (0-4) Urine Squamous Epithelial Cells Few /LPF Urine Transitional Epithelial Cells Few /LPF Urine Bacteria 0 /HPF (0-FEW) White Blood Count 6.2 x10^3/uL (4.0-11.0) Red Blood Count 4.63 x10^6/uL (3.50-5.40) Hemoglobin 13.2 g/dL (12.0-15.5) Hematocrit 39.5 % (36.0-47.0) Mean Corpuscular Volume 85 fL (79-100) Mean Corpuscular Hemoglobin 29 pg (25-35) Mean Corpuscular Hemoglobin Concent 34 g/dL (31-37) Red Cell Distribution Width 13.3 % (11.5-14.5) Platelet Count 378 x10^3/uL (140-400) Neutrophils (%) (Auto) 64 % (31-73) Lymphocytes (%) (Auto) 25 % (24-48) Monocytes (%) (Auto) 9 % (0-9) Eosinophils (%) (Auto) 2 % (0-3) Basophils (%) (Auto) 1 % (0-3) Neutrophils # (Auto) 4.0 x10^3/uL (1.8-7.7) Lymphocytes # (Auto) 1.5 x10^3/uL (1.0-4.8) Monocytes # (Auto) 0.6 x10^3/uL (0.0-1.1) Eosinophils # (Auto) 0.1 x10^3/uL (0.0-0.7) Basophils # (Auto) 0.1 x10^3/uL (0.0-0.2) Sodium Level 132 mmol/L (136-145) Potassium Level 4.0 mmol/L (3.5-5.1) Chloride Level 96 mmol/L (98-107) Carbon Dioxide Level 26 mmol/L (21-32) Anion Gap 10 (6-14) Blood Urea Nitrogen 19 mg/dL (7-20) Creatinine 1.0 mg/dL (0.6-1.0) Estimated GFR (Cockcroft-Gault) 54.2 BUN/Creatinine Ratio 19 (6-20) Glucose Level 96 mg/dL (70-99) Calcium Level 10.4 mg/dL (8.5-10.1) Total Bilirubin 0.5 mg/dL (0.2-1.0) Aspartate Amino Transf (AST/SGOT) 19 U/L (15-37) Alanine Aminotransferase (ALT/SGPT) 20 U/L (14-59) Alkaline Phosphatase 61 U/L (46-116) Troponin I Quantitative < 0.017 ng/mL (0.000-0.055) < 0.017 ng/mL (0.000-0.055) < 0.017 ng/mL (0.000-0.055) Total Protein 7.9 g/dL (6.4-8.2) Albumin 4.3 g/dL (3.4-5.0) Albumin/Globulin Ratio 1.2 (1.0-1.7) Laboratory Tests Test 05/19/19 12:42 05/19/19 12:59 05/19/19 17:45 05/19/19 20:30 Urine Collection Type Unknown Urine Color Yellow Urine Clarity Clear Urine pH 6.5 Urine Specific [place]once 1.010 Urine Protein Negative mg/dL (NEG-TRACE) Urine Glucose (UA) Negative mg/dL (NEG) Urine Ketones (Stick) Negative mg/dL (NEG) Urine Blood Negative (NEG) Urine Nitrite Negative (NEG) Urine Bilirubin Negative (NEG) Urine Urobilinogen Dipstick 0.2 mg/dL (0.2 mg/dL) Urine Leukocyte Esterase Negative (NEG) Urine RBC Occ /HPF (0-2) Urine WBC 1-4 /HPF (0-4) Urine Squamous Epithelial Cells Few /LPF Urine Transitional Epithelial Cells Few /LPF Urine Bacteria 0 /HPF (0-FEW) White Blood Count 6.2 x10^3/uL (4.0-11.0) Red Blood Count 4.63 x10^6/uL (3.50-5.40) Hemoglobin 13.2 g/dL (12.0-15.5) Hematocrit 39.5 % (36.0-47.0) Mean Corpuscular Volume 85 fL (79-100) Mean Corpuscular Hemoglobin 29 pg (25-35) Mean Corpuscular Hemoglobin Concent 34 g/dL (31-37) Red Cell Distribution Width 13.3 % (11.5-14.5) Platelet Count 378 x10^3/uL (140-400) Neutrophils (%) (Auto) 64 % (31-73) Lymphocytes (%) (Auto) 25 % (24-48) Monocytes (%) (Auto) 9 % (0-9) Eosinophils (%) (Auto) 2 % (0-3) Basophils (%) (Auto) 1 % (0-3) Neutrophils # (Auto) 4.0 x10^3/uL (1.8-7.7) Lymphocytes # (Auto) 1.5 x10^3/uL (1.0-4.8) Monocytes # (Auto) 0.6 x10^3/uL (0.0-1.1) Eosinophils # (Auto) 0.1 x10^3/uL (0.0-0.7) Basophils # (Auto) 0.1 x10^3/uL (0.0-0.2) Sodium Level 132 mmol/L (136-145) Potassium Level 4.0 mmol/L (3.5-5.1) Chloride Level 96 mmol/L (98-107) Carbon Dioxide Level 26 mmol/L (21-32) Anion Gap 10 (6-14) Blood Urea Nitrogen 19 mg/dL (7-20) Creatinine 1.0 mg/dL (0.6-1.0) Estimated GFR (Cockcroft-Gault) 54.2 BUN/Creatinine Ratio 19 (6-20) Glucose Level 96 mg/dL (70-99) Calcium Level 10.4 mg/dL (8.5-10.1) Total Bilirubin 0.5 mg/dL (0.2-1.0) Aspartate Amino Transf (AST/SGOT) 19 U/L (15-37) Alanine Aminotransferase (ALT/SGPT) 20 U/L (14-59) Alkaline Phosphatase 61 U/L (46-116) Troponin I Quantitative < 0.017 ng/mL (0.000-0.055) < 0.017 ng/mL (0.000-0.055) < 0.017 ng/mL (0.000-0.055) Total Protein 7.9 g/dL (6.4-8.2) Albumin 4.3 g/dL (3.4-5.0) Albumin/Globulin Ratio 1.2 (1.0-1.7) Medications Current Medications Labetalol HCl (Normodyne Iv Push) 10 mg 1X ONCE IVP Last administered on 05/19/19at 14:30; Start 05/19/19 at 14:15; Stop 05/19/19 at 14:16; Status DC Ondansetron HCl (Zofran) 4 mg PRN Q8HRS PRN IV NAUSEA/VOMITING; Start 05/19/19 at 14:30; Stop 05/20/19 at 14:29 Morphine Sulfate (Morphine Sulfate) 2 mg PRN Q2HR PRN IV PAIN; Start 05/19/19 at 14:30; Stop 05/20/19 at 14:29 Nitroglycerin (Nitrostat) 0.4 mg PRN Q5MIN PRN SL CHEST PAIN; Start 05/19/19 at 14:30; Stop 05/20/19 at 14:29 Amlodipine Besylate (Norvasc) 10 mg DAILY PO ; Start 05/20/19 at 09:00 Atorvastatin Calcium (Lipitor) 20 mg HS PO Last administered on 05/19/19at 20:28; Start 05/19/19 at 21:00 Fluticasone Propionate (Flonase) 2 spray DAILY NS ; Start 05/20/19 at 09:00 Hydrochlorothiazide (Hydrodiuril) 25 mg DAILY PO ; Start 05/20/19 at 09:00 Levothyroxine Sodium (Synthroid) 75 mcg DAILY PO ; Start 05/20/19 at 09:00; Stop 05/20/19 at 06:48; Status DC Losartan Potassium (Cozaar) 100 mg DAILY PO ; Start 05/20/19 at 09:00 Fenofibrate (Lofibra) 54 mg DAILY PO ; Start 05/20/19 at 09:00; Stop 05/19/19 at 20:39; Status DC Meloxicam (Mobic) 15 mg DAILY PO ; Start 05/20/19 at 09:00; Stop 05/19/19 at 20:39; Status DC Pantoprazole Sodium (Protonix) 40 mg DAILYAC PO Last administered on 05/20/19at 07:01; Start 05/20/19 at 07:30 Labetalol HCl (Normodyne Iv Push) 20 mg PRN Q6HRS PRN IVP HYPERTENSION Last administered on 05/19/19at 20:28; Start 05/19/19 at 17:00 Fenofibrate (Lofibra) 54 mg HS PO Last administered on 05/19/19at 21:15; Start 05/19/19 at 21:00 Meloxicam (Mobic) 15 mg HS PO Last administered on 05/19/19at 21:15; Start 05/19/19 at 21:00 Levothyroxine Sodium (Synthroid) 75 mcg DAILY07 PO Last administered on 05/20/19at 07:01; Start 05/20/19 at 07:00 Active Scripts Active Reported Losartan Potassium 50 Mg Tablet 100 Mg PO DAILY Omeprazole 20 Mg Capsule.dr 1 Cap PO BID Meloxicam 15 Mg Tablet 1 Tab PO DAILY Levothyroxine Sodium 75 Mcg Tablet 1 Tab PO DAILY Hydrochlorothiazide Tablet (Hydrochlorothiazide) 25 Mg Tablet 1 Tab PO DAILY Fluticasone Propionate Nasal [place] (Fluticasone Propionate) 16 Gm [place].susp 2 [place] NS DAILY Fenofibrate (Fenofibrate Nanocrystallized) 145 Mg Tablet 0.5 Tab PO DAILY Atorvastatin Calcium 20 Mg Tablet 20 Mg PO HS Amlodipine Besylate 10 Mg Tablet 10 Mg PO DAILY Vitals/I & O Vital Sign - Last 24 Hours 9/05/19/19 05/19/19 05/19/19 12:45 13:17 14:20 14:30 Temp 98.2 98.2 Pulse 92 76 80 81 Resp 20 20 24 B/P (MAP) 190/81 (117) 171/81 Pulse Ox 98 98 98 O2 Delivery Room Air 05/19/19 05/19/19 05/19/19 05/19/19 14:40 14:46 15:15 15:15 Pulse 68 68 Resp 20 20 B/P (MAP) 150/72 (98) 156/73 (100) Pulse Ox 100 95 05/19/19 05/19/19 05/19/19 05/19/19 15:15 15:50 19:40 20:10 Temp 97.8 97.8 97.8 97.8 Pulse 72 70 Resp 18 16 B/P (MAP) 155/71 (99) 166/79 (108) Pulse Ox 99 96 O2 Delivery Room Air Room Air Room Air Room Air 05/19/19 05/19/19 05/20/19 20:28 23:10 03:44 Temp 98.0 98.0 Pulse 70 62 66 Resp 16 16 B/P (MAP) 166/79 141/69 (93) 128/53 (78) Pulse Ox 98 97 O2 Delivery Room Air Room Air Intake and Output 05/19/19 05/19/19 05/20/19 14:59 22:59 06:59 Intake Total 560 ml 200 ml Output Total 350 ml Balance 210 ml 200 ml BRADEN MAN MD May 20, 2019 07:15
[2019-05-20] MEDS: hydroCHLOROthiazide 25 MG TABLET PO SCH (08:34)
[2019-05-20] MEDS: LOSARTAN POTASSIUM 50 MG TABLET. PO SCH (08:35)
[2019-05-20] MEDS: amLODIPine BESYLATE 10 MG TABLET PO SCH (08:35)
[2019-05-20] MEDS: FLUTICASONE 50MCG/NASAL SPRAY 16GM BOTTLE. NS SCH (08:35)
[2019-05-20] MEDS ORDERED: MELOXICAM 7.5 MG TABLET PO SCH (09:00)
[2019-05-20] MEDS ORDERED: LEVOTHYROXINE 75 MCG TABLET PO SCH (09:00)
[2019-05-20] MEDS ORDERED: FENOFIBRATE 54 MG TABLET. PO SCH (09:00)
[2019-05-20] MEDS: LABETALOL 20 MG/4 ML DISP.SYRIN. IVP PRN (12:14)
--- NOTE | 2019-05-20 12:29 | PDOC2 ---
CONSULT Date of Consult Date of Consult DATE: 05/20/19 TIME: 12:29 Reason for Consult Reason for Consult: Near syncope Referring Physician Referring Physician: Dr. Sanchez Identification/Chief Complaint Chief Complaint Dizziness Source Source: Chart review, Patient History of Present Illness Reason for Visit: 74-year-old pleasant female presented complaining of intermittent episodes of dizziness and approximately 4 episodes of near syncope in the last few months. She denied any adonis syncope. She was diagnosed with accelerated hypertension and admitted for further management. Patient claimed compliance with all her medications. She denied any chest pain, orthopnea/PND or palpitations. Past Medical History Cardiovascular: HTN, Hyperlipidemia Heme/Onc: No pertinent hx Hepatobiliary: No pertinent hx Family History Family History: No Significant Social History ALCOHOL: none Drugs: None Current Problem List Problem List Problems Medical Problems: (1) Dizziness Status: Acute (2) Hypertensive urgency Status: Acute Current Medications Current Medications Current Medications Labetalol HCl (Normodyne Iv Push) 10 mg 1X ONCE IVP Last administered on 05/19/19at 14:30; Start 05/19/19 at 14:15; Stop 05/19/19 at 14:16; Status DC Ondansetron HCl (Zofran) 4 mg PRN Q8HRS PRN IV NAUSEA/VOMITING; Start 05/19/19 at 14:30; Stop 05/20/19 at 14:29 Morphine Sulfate (Morphine Sulfate) 2 mg PRN Q2HR PRN IV PAIN; Start 05/19/19 at 14:30; Stop 05/20/19 at 14:29 Nitroglycerin (Nitrostat) 0.4 mg PRN Q5MIN PRN SL CHEST PAIN; Start 05/19/19 at 14:30; Stop 05/20/19 at 14:29 Amlodipine Besylate (Norvasc) 10 mg DAILY PO Last administered on 05/20/19at 08:35; Start 05/20/19 at 09:00 Atorvastatin Calcium (Lipitor) 20 mg HS PO Last administered on 05/19/19at 20:28; Start 05/19/19 at 21:00 Fluticasone Propionate (Flonase) 2 spray DAILY NS Last administered on 05/20/19at 08:35; Start 05/20/19 at 09:00 Hydrochlorothiazide (Hydrodiuril) 25 mg DAILY PO Last administered on 05/20/19at 08:35; Start 05/20/19 at 09:00 Levothyroxine Sodium (Synthroid) 75 mcg DAILY PO ; Start 05/20/19 at 09:00; Stop 05/20/19 at 06:48; Status DC Losartan Potassium (Cozaar) 100 mg DAILY PO Last administered on 05/20/19at 08:35; Start 05/20/19 at 09:00 Fenofibrate (Lofibra) 54 mg DAILY PO ; Start 05/20/19 at 09:00; Stop 05/19/19 at 20:39; Status DC Meloxicam (Mobic) 15 mg DAILY PO ; Start 05/20/19 at 09:00; Stop 05/19/19 at 20:39; Status DC Pantoprazole Sodium (Protonix) 40 mg DAILYAC PO Last administered on 05/20/19at 07:01; Start 05/20/19 at 07:30 Labetalol HCl (Normodyne Iv Push) 20 mg PRN Q6HRS PRN IVP HYPERTENSION Last administered on 05/20/19at 12:14; Start 05/19/19 at 17:00 Fenofibrate (Lofibra) 54 mg HS PO Last administered on 05/19/19at 21:15; Start 05/19/19 at 21:00 Meloxicam (Mobic) 15 mg HS PO Last administered on 05/19/19at 21:15; Start 05/19/19 at 21:00 Levothyroxine Sodium (Synthroid) 75 mcg DAILY07 PO Last administered on 05/20/19at 07:01; Start 05/20/19 at 07:00 Active Scripts Active Reported Losartan Potassium 50 Mg Tablet 100 Mg PO DAILY Omeprazole 20 Mg Capsule.dr 1 Cap PO BID Meloxicam 15 Mg Tablet 1 Tab PO DAILY Levothyroxine Sodium 75 Mcg Tablet 1 Tab PO DAILY Hydrochlorothiazide Tablet (Hydrochlorothiazide) 25 Mg Tablet 1 Tab PO DAILY Fluticasone Propionate Nasal [place] (Fluticasone Propionate) 16 Gm [place].susp 2 [place] NS DAILY Fenofibrate (Fenofibrate Nanocrystallized) 145 Mg Tablet 0.5 Tab PO DAILY Atorvastatin Calcium 20 Mg Tablet 20 Mg PO HS Amlodipine Besylate 10 Mg Tablet 10 Mg PO DAILY Allergies Allergies: Coded Allergies: feathers (Verified Allergy, Severe, SOA, 05/19/19) Sulfa (Sulfonamide Antibiotics) (Verified Allergy, Intermediate, rash, 05/19/19) azelastine (Verified Allergy, Intermediate, 05/19/19) cephalexin (Verified Allergy, Intermediate, 05/19/19) egg (Verified Allergy, Intermediate, diarrhea, 05/19/19) nitrofurantoin (Verified Allergy, Intermediate, 05/19/19) aspirin (Verified Adverse Reaction, Mild, irritates stomach, 05/19/19) esomeprazole (Verified Adverse Reaction, Mild, lightheaded, 05/19/19) ROS PSYCHOLOGICAL ROS: No: Hallucinations Eyes: No Loss of vision HEENT: No: Epistaxis Cardiovascular: No Chest Pain, No Palpitations Gastrointestinal: No Vomiting, No Diarrhea Genitourinary: No Hematuria Neurological: Yes Dizziness; No Seizures Skin: No Rash Physical Exam General: Alert, Oriented X3 HEENT: Atraumatic, PERRLA Lungs: Clear to auscultation Heart: Regular rate Abdomen: Soft, No tenderness Extremities: No edema Psych/Mental Status: Mood NL Vitals VITALS Vital Signs Date Time Temp Pulse Resp B/P (MAP) Pulse Ox O2 Delivery O2 Flow Rate FiO2 05/20/19 12:14 64 171/72 05/20/19 11:05 97.8 18 98 Room Air 97.8 Labs Labs Laboratory Tests Test 05/19/19 12:42 05/19/19 12:59 05/19/19 17:45 05/19/19 20:30 Urine Collection Type Unknown Urine Color Yellow Urine Clarity Clear Urine pH 6.5 Urine Specific [place] 1.010 Urine Protein Negative mg/dL (NEG-TRACE) Urine Glucose (UA) Negative mg/dL (NEG) Urine Ketones (Stick) Negative mg/dL (NEG) Urine Blood Negative (NEG) Urine Nitrite Negative (NEG) Urine Bilirubin Negative (NEG) Urine Urobilinogen Dipstick 0.2 mg/dL (0.2 mg/dL) Urine Leukocyte Esterase Negative (NEG) Urine RBC Occ /HPF (0-2) Urine WBC 1-4 /HPF (0-4) Urine Squamous Epithelial Cells Few /LPF Urine Transitional Epithelial Cells Few /LPF Urine Bacteria 0 /HPF (0-FEW) White Blood Count 6.2 x10^3/uL (4.0-11.0) Red Blood Count 4.63 x10^6/uL (3.50-5.40) Hemoglobin 13.2 g/dL (12.0-15.5) Hematocrit 39.5 % (36.0-47.0) Mean Corpuscular Volume 85 fL (79-100) Mean Corpuscular Hemoglobin 29 pg (25-35) Mean Corpuscular Hemoglobin Concent 34 g/dL (31-37) Red Cell Distribution Width 13.3 % (11.5-14.5) Platelet Count 378 x10^3/uL (140-400) Neutrophils (%) (Auto) 64 % (31-73) Lymphocytes (%) (Auto) 25 % (24-48) Monocytes (%) (Auto) 9 % (0-9) Eosinophils (%) (Auto) 2 % (0-3) Basophils (%) (Auto) 1 % (0-3) Neutrophils # (Auto) 4.0 x10^3/uL (1.8-7.7) Lymphocytes # (Auto) 1.5 x10^3/uL (1.0-4.8) Monocytes # (Auto) 0.6 x10^3/uL (0.0-1.1) Eosinophils # (Auto) 0.1 x10^3/uL (0.0-0.7) Basophils # (Auto) 0.1 x10^3/uL (0.0-0.2) Sodium Level 132 mmol/L (136-145) Potassium Level 4.0 mmol/L (3.5-5.1) Chloride Level 96 mmol/L (98-107) Carbon Dioxide Level 26 mmol/L (21-32) Anion Gap 10 (6-14) Blood Urea Nitrogen 19 mg/dL (7-20) Creatinine 1.0 mg/dL (0.6-1.0) Estimated GFR (Cockcroft-Gault) 54.2 BUN/Creatinine Ratio 19 (6-20) Glucose Level 96 mg/dL (70-99) Calcium Level 10.4 mg/dL (8.5-10.1) Total Bilirubin 0.5 mg/dL (0.2-1.0) Aspartate Amino Transf (AST/SGOT) 19 U/L (15-37) Alanine Aminotransferase (ALT/SGPT) 20 U/L (14-59) Alkaline Phosphatase 61 U/L (46-116) Troponin I Quantitative < 0.017 ng/mL (0.000-0.055) < 0.017 ng/mL (0.000-0.055) < 0.017 ng/mL (0.000-0.055) Total Protein 7.9 g/dL (6.4-8.2) Albumin 4.3 g/dL (3.4-5.0) Albumin/Globulin Ratio 1.2 (1.0-1.7) Laboratory Tests Test 05/19/19 12:42 05/19/19 12:59 05/19/19 17:45 05/19/19 20:30 Urine Collection Type Unknown Urine Color Yellow Urine Clarity Clear Urine pH 6.5 Urine Specific [place] 1.010 Urine Protein Negative mg/dL (NEG-TRACE) Urine Glucose (UA) Negative mg/dL (NEG) Urine Ketones (Stick) Negative mg/dL (NEG) Urine Blood Negative (NEG) Urine Nitrite Negative (NEG) Urine Bilirubin Negative (NEG) Urine Urobilinogen Dipstick 0.2 mg/dL (0.2 mg/dL) Urine Leukocyte Esterase Negative (NEG) Urine RBC Occ /HPF (0-2) Urine WBC 1-4 /HPF (0-4) Urine Squamous Epithelial Cells Few /LPF Urine Transitional Epithelial Cells Few /LPF Urine Bacteria 0 /HPF (0-FEW) White Blood Count 6.2 x10^3/uL (4.0-11.0) Red Blood Count 4.63 x10^6/uL (3.50-5.40) Hemoglobin 13.2 g/dL (12.0-15.5) Hematocrit 39.5 % (36.0-47.0) Mean Corpuscular Volume 85 fL (79-100) Mean Corpuscular Hemoglobin 29 pg (25-35) Mean Corpuscular Hemoglobin Concent 34 g/dL (31-37) Red Cell Distribution Width 13.3 % (11.5-14.5) Platelet Count 378 x10^3/uL (140-400) Neutrophils (%) (Auto) 64 % (31-73) Lymphocytes (%) (Auto) 25 % (24-48) Monocytes (%) (Auto) 9 % (0-9) Eosinophils (%) (Auto) 2 % (0-3) Basophils (%) (Auto) 1 % (0-3) Neutrophils # (Auto) 4.0 x10^3/uL (1.8-7.7) Lymphocytes # (Auto) 1.5 x10^3/uL (1.0-4.8) Monocytes # (Auto) 0.6 x10^3/uL (0.0-1.1) Eosinophils # (Auto) 0.1 x10^3/uL (0.0-0.7) Basophils # (Auto) 0.1 x10^3/uL (0.0-0.2) Sodium Level 132 mmol/L (136-145) Potassium Level 4.0 mmol/L (3.5-5.1) Chloride Level 96 mmol/L (98-107) Carbon Dioxide Level 26 mmol/L (21-32) Anion Gap 10 (6-14) Blood Urea Nitrogen 19 mg/dL (7-20) Creatinine 1.0 mg/dL (0.6-1.0) Estimated GFR (Cockcroft-Gault) 54.2 BUN/Creatinine Ratio 19 (6-20) Glucose Level 96 mg/dL (70-99) Calcium Level 10.4 mg/dL (8.5-10.1) Total Bilirubin 0.5 mg/dL (0.2-1.0) Aspartate Amino Transf (AST/SGOT) 19 U/L (15-37) Alanine Aminotransferase (ALT/SGPT) 20 U/L (14-59) Alkaline Phosphatase 61 U/L (46-116) Troponin I Quantitative < 0.017 ng/mL (0.000-0.055) < 0.017 ng/mL (0.000-0.055) < 0.017 ng/mL (0.000-0.055) Total Protein 7.9 g/dL (6.4-8.2) Albumin 4.3 g/dL (3.4-5.0) Albumin/Globulin Ratio 1.2 (1.0-1.7) Assessment/Plan Assessment/Plan 1. Near syncope, recurrent. She is in sinus rhythm and telemetry did not show any significant arrhythmia so far. Agree with carotid arterial duplex scan for further evolution. 2-D echo in June 2018 showed LVEF 70%.. We will obtain an event monitor recording as an outpatient to rule out arrhythmic etiology. 2. Accelerated hypertension: Blood pressure continues to be labile. Check renal arterial duplex scan to rule out renal artery stenosis. Continue current medical regimen and add labetalol 100 mg twice daily for better control. 3. Hyperlipidemia: Continue statin therapy 4. Hypothyroidism: Continue levothyroxine Thank you for your consultation JETT CASAS MD May 20, 2019 12:29
[2019-05-20] MEDS: LABETALOL HCL 100 MG TABLET. PO SCH (16:38)
[2019-05-20] MEDS: FENOFIBRATE 54 MG TABLET. PO SCH (20:53)
[2019-05-20] MEDS: ATORVASTATIN CALCIUM 20 MG TABLET PO SCH (20:54)
[2019-05-20] MEDS: MELOXICAM 7.5 MG TABLET PO SCH (20:54)
--- NOTE | 2019-05-21 00:22 | RAD ---
Renal arterial duplex Doppler ultrasound HISTORY: Renal artery stenosis. TECHNIQUE: Axial duplex Doppler sonography were utilized. FINDINGS: Abdominal aorta peak systolic velocity 96 cm/s. Right renal length 9.7 cm. Normal cortical thickness and echogenicity. No mass or hydronephrosis. Bowel gas shadowing limits visualization of the lower pole. Right renal artery peak systolic velocity 130 cm/s proximal, 155 cm/s mid segment and 104 cm/s distal. Right renal artery/aorta velocity ratio 1.6. Arterial acceleration times were not recorded. Right renal vein patent. Left renal length 10.1 cm. Normal cortical thickness and echogenicity. No mass or hydronephrosis. Left renal artery peak systolic velocity 103 cm/s proximal, 168 cm/s mid segment and 129 cm/s distal. Left renal artery/aorta velocity ratio is 1.7. Arterial acceleration times were not recorded. Left renal vein is patent. IVC and bladder not visualized. IMPRESSION: Normal exam. No evidence of significant renal arterial stenosis or occlusion. No hydronephrosis. Electronically signed by: Korey Nobles MD (05/21/2019 12:18 AM) [id number]
--- NOTE | 2019-05-21 01:14 | CONS ---
DATE OF CONSULTATION: 05/20/2019 REFERRING PHYSICIAN: Dr. Manrique. REASON FOR CONSULTATION: Presyncope. HISTORY OF PRESENT ILLNESS: The patient is a very pleasant 74-year-old woman who has had 4 episodes of feeling funny in her head. The first episode was on 05/09/2019. The most recent episode was 05/19/2019. Spells last about 10 minutes. Suddenly, she feels funny in her head and seems all foggy headed. She does not have any difficulty with movement or balance. She will usually want to sit down. It does not seem to affect speech or swallow. She does not have focal weakness or numbness. Most recent spell occurred in the doctor's office. In the Emergency Room, she was found to have a blood pressure of 190/100. There has never been convulsive activity. There has never been loss of consciousness and she is always fully aware. She does not have known automatisms associated. PAST MEDICAL HISTORY: 1. Diverticulitis. 2. Gastroesophageal reflux disease. 3. Hyperlipidemia. 4. Hypertension. 5. Hypothyroidism. 6. History of pancreatitis. 7. Cholecystectomy. 8. Hiatal hernia. ALLERGIES: SULFA, ASPIRIN, CEPHALEXIN, EGGS, OMEPRAZOLE, FEATHERS AND NITROFURANTOIN. MEDICINES PRIOR TO ADMISSION: Amlodipine 10 mg, atorvastatin 20 mg, fenofibrate, Flonase nasal, hydrochlorothiazide, levothyroxine 75 mcg, losartan 100 mg, meloxicam 15 mg and omeprazole 20 mg twice per day. FAMILY HISTORY: Pertinent for coronary artery disease. SOCIAL HISTORY: She does not smoke tobacco, drink alcohol or use recreational drugs. She is . Her sounds like he has a moderately advanced dementia and she is the primary care provider at home. REVIEW OF SYSTEMS: She has not had headache. There has been no change of vision or hearing. She has had 4 spells which last about 10 minutes. She has not had trouble with speech, swallow or shortness of breath. There has been no cough, cold. There has been no chest or abdominal pain. She does not complain of bone or joint pain. She has not had recent fever or rash. Does not complain of any gastrointestinal complaints other than occasional constipation. She does not have any genitourinary complaints. She does not complain of numbness or focal weakness. She does not have any psychiatric concerns, although was under stress because of taking care of her demented . PHYSICAL EXAMINATION: VITAL SIGNS: The blood pressure was 171/72, pulse 64, respirations 18, temperature 97.8 degrees Fahrenheit. Oximetry was 98% on room air. Her weight was 68.7 kilograms, height 63 inches and a calculated body mass index of 26.8. GENERAL: She was alert, awake and cooperative. Speech was fluent and clear. She had a good fund of recent and remote knowledge. Attention and concentration was intact. She appeared well groomed and well nourished. She was fully oriented. NEUROLOGIC: Examination of the cranial nerves revealed visual suarez were full to confrontation. Extraocular movements were intact. The eyes were conjugate. Pursuit movements were smooth and saccadic eye movements were without dysmetria. Funduscopic exam did not reveal papilledema, exudate or hemorrhage. Facial sensation was intact. Muscles of mastication and facial expression were powerful symmetrically. There was no tenderness to palpation of the temporal arteries. Hearing was intact to finger rub. The palate arched symmetrically and the tongue was midline with full range of motion. Sternocleidomastoid and trapezius were powerful. Muscle bulk and tone was normal. There was no arm or leg drift. Power was full and symmetric in the upper and lower extremities. Reflexes were 2/4 and symmetric in the upper and lower extremities. The toes were downgoing bilaterally. Coordination testing with [id number], [id number], fine motor and rapid alternating movements was well performed. The sensory exam was intact to pain, light touch, proprioception, graphesthesia, cold thermal and vibration. There was no extinction to double simultaneous stimulation. Gait was of normal base and a steady walk. She was able to heel, toe and tandem walk. The Romberg stance was negative. NECK: Auscultation of the carotid arteries did not reveal a bruit. HEART: Rhythm is regular, without a murmur. EXTREMITIES: Peripheral pulses were symmetric. There was no edema or cyanosis of the extremities. REVIEW OF LABORATORY DATA: CBC revealed a normal white blood cell count, hemoglobin, hematocrit and platelet count. Chemistries revealed slightly low sodium at 132 and chloride at 96. Potassium and CO2 were normal. BUN and creatinine were normal with a GFR that calculated at 54.2. Glucose was normal. Calcium was elevated at 10.2. The liver enzymes were not elevated. Serial troponins were not elevated. Total protein and albumin were normal. Urinalysis was negative. Chest x-ray revealed no acute cardiopulmonary disease. IMPRESSION: The patient is a very pleasant 74-year-old woman who has had 4 spells where she feels funny in her head, which passes in about 10 minutes. I do not see evidence of convulsive activity. Symptoms are nonfocal and do not suggest seizure. Exam was normal. I do not see a neurologic process. This may be related to elevated blood pressures. I appreciate being involved in her care. YENY BURCIAGA MD DR: ANABEL/perez JOB#: [id number] / [id number]
[2019-05-21 03:56] VITALS: BP 144/62
[2019-05-21 05:11] LABS: BASO % 1 % (0-3); EOS # 0.1 x10^3/uL (0.0-0.7); EOS % 3 % (0-3); HEMATOCRIT 35.4 % (36.0-47.0); LYMPH % 35 % (24-48); MEAN CORPUSCULAR HEMOGLOBIN 29 pg (25-35); MEAN CORPUSCULAR HGB CONC 34 g/dL (31-37); MEAN CORPUSCULAR VOLUME 85 fL (79-100); MONO # 0.6 x10^3/uL (0.0-1.1); MONO % 10 % (0-9); NEUT % 53 % (31-73); PLATELET COUNT 316 x10^3/uL (140-400); RED BLOOD COUNT 4.16 x10^6/uL (3.50-5.40); RED CELL DISTRIBUTION WIDTH 13.8 % (11.5-14.5); WHITE BLOOD COUNT 5.7 x10^3/uL (4.0-11.0)
[2019-05-21 05:38] LABS: CALCIUM 9.8 mg/dL (8.5-10.1); CREATININE 0.9 mg/dL (0.6-1.0); GFR 61.2; POTASSIUM 3.8 mmol/L (3.5-5.1)
[2019-05-21 05:40] LABS: CHOLESTEROL/HDL RATIO 2.3
[2019-05-21] MEDS: LEVOTHYROXINE 75 MCG TABLET PO SCH (06:30)
[2019-05-21 07:00] VITALS: BP 135/57
--- NOTE | 2019-05-21 07:16 | RAD ---
Carotid doppler ultrasound History: Syncope Multiple grayscale, color, and duplex spectral analysis waveform sonographic images were acquired of the carotid, subclavian, and vertebral arteries. Comparison: None Findings: RIGHT: PSV cm/sec EDV cm/sec Common carotid artery 85 20 Maximal internal carotid artery 66 26 External carotid artery 85 Vertebral artery 37 ICA/CCA ratio 0.78 LEFT: PSV cm/sec EDV cm/sec Common carotid artery 72 23 Maximum internal carotid artery 60 23 External carotid artery 80 Vertebral artery 51 ICA/CCA ratio 0.83 Velocities used to determine stenosis are known to correlate with NASCET angiographic criteria. There is antegrade flow in the bilateral vertebral arteries. No significant stenosis is demonstrated on grayscale or color images. There is minimal plaque. Impression: 1. There is no evidence of a hemodynamically significant stenosis. Electronically signed by: Froy Davis MD (05/21/2019 7:13 AM) [id number]
--- NOTE | 2019-05-21 08:29 | PDOC ---
PROGRESS NOTES History of Present Illness History of Present Illness ASSESSMENT AND PLAN: Hypertensive emergency, remains labile No evidence of significant renal arterial stenosis or occlusion. No hydronephrosis. on doppler/sono dizziness, near syncope. , metabolic encephalopathy, acute mild hyponatremia, improved hyperlipidemia BRADYCARDIA, MONITOR admitted. consult Cardiology, consult Neurology. Home meds, p.r.n. labetalol. PT, OT, DVT prophylaxis. Full code. tele bed neurochecks q 4 hrs doppler carotids follow lyholger reese 05/21 PLAN event monitor recording as an outpatient to rule out arrhyth 28 min pt exam, chart review, > 50% of time spent with exam, chart review, pt care coordination Vitals Vitals Vital Signs Date Time Temp Pulse Resp B/P (MAP) Pulse Ox O2 Delivery O2 Flow Rate FiO2 05/21/19 07:00 98.2 55 16 135/57 (83) 95 Room Air 98.2 Physical Exam Physical Exam HEENT: Head is normocephalic, atraumatic, pupils were equally round and reactive to light and accommodation. NECK: Supple, no JVD, no thyromegaly was noted. LUNGS: Clear to auscultation in all lung suarez without rhonchi or wheezing. HEART: RRR, S1, S2 present. Peripheral pulses intact, no obvious murmurs were noted. ABDOMEN: Soft, nontender. Positive bowel sounds no organomegaly, normal bowel sounds. EXTREMITIES: Without any cyanosis, clubbing, or edema. Pedal pulses intact, Homans sign is negative. NEUROLOGIC: Normal speech, normal tone. A & O x3, moves all extremities, no obvious focal deficits. PSYCHIATRIC: Normal affect, normal mood. Stable. SKIN: No ulcerations or rashes, good skin turgor, no jaundice. VASCULAR: Good capillary refill, neurovascular bundle appears to be intact. General: Alert, Oriented X3 Heart: Regular rate Lungs: Clear Abdomen: Soft, No tenderness Extremities: No edema Skin: No significant lesion Labs LABS SEX: FEXAM ACCESSION#: [id number] STATUS: ADM IN ORD. PHYSICIAN: JETT CASAS MD REASON: renal artery stenosis PROCEDURE: RENAL BILAT RENAL DUPLEX CO Renal arterial duplex Doppler ultrasound HISTORY: Renal artery stenosis. TECHNIQUE: Axial duplex Doppler sonography were utilized. FINDINGS: Abdominal aorta peak systolic velocity 96 cm/s. Right renal length 9.7 cm. Normal cortical thickness and echogenicity. No mass or hydronephrosis. Bowel gas shadowing limits visualization of the lower pole. Right renal artery peak systolic velocity 130 cm/s proximal, 155 cm/s mid segment and 104 cm/s distal. Right renal artery/aorta velocity ratio 1.6. Arterial acceleration times were not recorded. Right renal vein patent. Left renal length 10.1 cm. Normal cortical thickness and echogenicity. No mass or hydronephrosis. Left renal artery peak systolic velocity 103 cm/s proximal, 168 cm/s mid segment and 129 cm/s distal. Left renal artery/aorta velocity ratio is 1.7. Arterial acceleration times were not recorded. Left renal vein is patent. IVC and bladder not visualized. IMPRESSION: Normal exam. No evidence of significant renal arterial stenosis or occlusion. No hydronephrosis. Electronically signed by: Korey Nobles MD (05/21/2019 12:18 AM) [facility]ALSpacecom[facility] [id number] Carotid doppler ultrasound History: Syncope Multiple grayscale, color, and duplex spectral analysis waveform sonographic images were acquired of the carotid, subclavian, and vertebral arteries. Comparison: None Findings: RIGHT: PSV cm/sec EDV cm/sec Common carotid artery 85 20 Maximal internal carotid artery 66 26 External carotid artery 85 Vertebral artery 37 ICA/CCA ratio 0.78 LEFT: PSV cm/sec EDV cm/sec Common carotid artery 72 23 Maximum internal carotid artery 60 23 External carotid artery 80 Vertebral artery 51 ICA/CCA ratio 0.83 Velocities used to determine stenosis are known to correlate with NASCET angiographic criteria. There is antegrade flow in the bilateral vertebral arteries. No significant stenosis is demonstrated on grayscale or color images. There is minimal plaque. Impression: 1. There is no evidence of a hemodynamically significant stenosis. Electronically signed by: Froy Davis MD (05/21/2019 7:13 AM) [facility]ALSpacecomD[facility] [id number] Laboratory Tests Test 05/21/19 03:35 White Blood Count 5.7 x10^3/uL (4.0-11.0) Red Blood Count 4.16 x10^6/uL (3.50-5.40) Hemoglobin 12.0 g/dL (12.0-15.5) Hematocrit 35.4 % (36.0-47.0) Mean Corpuscular Volume 85 fL (79-100) Mean Corpuscular Hemoglobin 29 pg (25-35) Mean Corpuscular Hemoglobin Concent 34 g/dL (31-37) Red Cell Distribution Width 13.8 % (11.5-14.5) Platelet Count 316 x10^3/uL (140-400) Neutrophils (%) (Auto) 53 % (31-73) Lymphocytes (%) (Auto) 35 % (24-48) Monocytes (%) (Auto) 10 % (0-9) Eosinophils (%) (Auto) 3 % (0-3) Basophils (%) (Auto) 1 % (0-3) Neutrophils # (Auto) 3.0 x10^3/uL (1.8-7.7) Lymphocytes # (Auto) 2.0 x10^3/uL (1.0-4.8) Monocytes # (Auto) 0.6 x10^3/uL (0.0-1.1) Eosinophils # (Auto) 0.1 x10^3/uL (0.0-0.7) Basophils # (Auto) 0.0 x10^3/uL (0.0-0.2) Sodium Level 135 mmol/L (136-145) Potassium Level 3.8 mmol/L (3.5-5.1) Chloride Level 99 mmol/L (98-107) Carbon Dioxide Level 29 mmol/L (21-32) Anion Gap 7 (6-14) Blood Urea Nitrogen 17 mg/dL (7-20) Creatinine 0.9 mg/dL (0.6-1.0) Estimated GFR (Cockcroft-Gault) 61.2 Glucose Level 86 mg/dL (70-99) Calcium Level 9.8 mg/dL (8.5-10.1) Triglycerides Level 112 mg/dL (0-150) Cholesterol Level 135 mg/dL (0-200) LDL Cholesterol, Calculated 55 mg/dL (0-100) VLDL Cholesterol, Calculated 22 mg/dL (0-40) Non-HDL Cholesterol Calculated 77 mg/dL (0-129) HDL Cholesterol 58 mg/dL (40-60) Cholesterol/HDL Ratio 2.3 Assessment and Plan Assessmemt and Plan Problems Medical Problems: (1) Dizziness Status: Acute (2) Hypertensive urgency Status: Acute Comment Review of Relevant I have reviewed the following items georgina (where applicable) has been applied. Labs Laboratory Tests Test 05/19/19 12:42 05/19/19 12:59 05/19/19 17:45 05/19/19 20:30 Urine Collection Type Unknown Urine Color Yellow Urine Clarity Clear Urine pH 6.5 Urine Specific [place] 1.010 Urine Protein Negative mg/dL (NEG-TRACE) Urine Glucose (UA) Negative mg/dL (NEG) Urine Ketones (Stick) Negative mg/dL (NEG) Urine Blood Negative (NEG) Urine Nitrite Negative (NEG) Urine Bilirubin Negative (NEG) Urine Urobilinogen Dipstick 0.2 mg/dL (0.2 mg/dL) Urine Leukocyte Esterase Negative (NEG) Urine RBC Occ /HPF (0-2) Urine WBC 1-4 /HPF (0-4) Urine Squamous Epithelial Cells Few /LPF Urine Transitional Epithelial Cells Few /LPF Urine Bacteria 0 /HPF (0-FEW) White Blood Count 6.2 x10^3/uL (4.0-11.0) Red Blood Count 4.63 x10^6/uL (3.50-5.40) Hemoglobin 13.2 g/dL (12.0-15.5) Hematocrit 39.5 % (36.0-47.0) Mean Corpuscular Volume 85 fL (79-100) Mean Corpuscular Hemoglobin 29 pg (25-35) Mean Corpuscular Hemoglobin Concent 34 g/dL (31-37) Red Cell Distribution Width 13.3 % (11.5-14.5) Platelet Count 378 x10^3/uL (140-400) Neutrophils (%) (Auto) 64 % (31-73) Lymphocytes (%) (Auto) 25 % (24-48) Monocytes (%) (Auto) 9 % (0-9) Eosinophils (%) (Auto) 2 % (0-3) Basophils (%) (Auto) 1 % (0-3) Neutrophils # (Auto) 4.0 x10^3/uL (1.8-7.7) Lymphocytes # (Auto) 1.5 x10^3/uL (1.0-4.8) Monocytes # (Auto) 0.6 x10^3/uL (0.0-1.1) Eosinophils # (Auto) 0.1 x10^3/uL (0.0-0.7) Basophils # (Auto) 0.1 x10^3/uL (0.0-0.2) Sodium Level 132 mmol/L (136-145) Potassium Level 4.0 mmol/L (3.5-5.1) Chloride Level 96 mmol/L (98-107) Carbon Dioxide Level 26 mmol/L (21-32) Anion Gap 10 (6-14) Blood Urea Nitrogen 19 mg/dL (7-20) Creatinine 1.0 mg/dL (0.6-1.0) Estimated GFR (Cockcroft-Gault) 54.2 BUN/Creatinine Ratio 19 (6-20) Glucose Level 96 mg/dL (70-99) Calcium Level 10.4 mg/dL (8.5-10.1) Total Bilirubin 0.5 mg/dL (0.2-1.0) Aspartate Amino Transf (AST/SGOT) 19 U/L (15-37) Alanine Aminotransferase (ALT/SGPT) 20 U/L (14-59) Alkaline Phosphatase 61 U/L (46-116) Troponin I Quantitative < 0.017 ng/mL (0.000-0.055) < 0.017 ng/mL (0.000-0.055) < 0.017 ng/mL (0.000-0.055) Total Protein 7.9 g/dL (6.4-8.2) Albumin 4.3 g/dL (3.4-5.0) Albumin/Globulin Ratio 1.2 (1.0-1.7) Test 05/21/19 03:35 White Blood Count 5.7 x10^3/uL (4.0-11.0) Red Blood Count 4.16 x10^6/uL (3.50-5.40) Hemoglobin 12.0 g/dL (12.0-15.5) Hematocrit 35.4 % (36.0-47.0) Mean Corpuscular Volume 85 fL (79-100) Mean Corpuscular Hemoglobin 29 pg (25-35) Mean Corpuscular Hemoglobin Concent 34 g/dL (31-37) Red Cell Distribution Width 13.8 % (11.5-14.5) Platelet Count 316 x10^3/uL (140-400) Neutrophils (%) (Auto) 53 % (31-73) Lymphocytes (%) (Auto) 35 % (24-48) Monocytes (%) (Auto) 10 % (0-9) Eosinophils (%) (Auto) 3 % (0-3) Basophils (%) (Auto) 1 % (0-3) Neutrophils # (Auto) 3.0 x10^3/uL (1.8-7.7) Lymphocytes # (Auto) 2.0 x10^3/uL (1.0-4.8) Monocytes # (Auto) 0.6 x10^3/uL (0.0-1.1) Eosinophils # (Auto) 0.1 x10^3/uL (0.0-0.7) Basophils # (Auto) 0.0 x10^3/uL (0.0-0.2) Sodium Level 135 mmol/L (136-145) Potassium Level 3.8 mmol/L (3.5-5.1) Chloride Level 99 mmol/L (98-107) Carbon Dioxide Level 29 mmol/L (21-32) Anion Gap 7 (6-14) Blood Urea Nitrogen 17 mg/dL (7-20) Creatinine 0.9 mg/dL (0.6-1.0) Estimated GFR (Cockcroft-Gault) 61.2 Glucose Level 86 mg/dL (70-99) Calcium Level 9.8 mg/dL (8.5-10.1) Triglycerides Level 112 mg/dL (0-150) Cholesterol Level 135 mg/dL (0-200) LDL Cholesterol, Calculated 55 mg/dL (0-100) VLDL Cholesterol, Calculated 22 mg/dL (0-40) Non-HDL Cholesterol Calculated 77 mg/dL (0-129) HDL Cholesterol 58 mg/dL (40-60) Cholesterol/HDL Ratio 2.3 Laboratory Tests Test 05/21/19 03:35 White Blood Count 5.7 x10^3/uL (4.0-11.0) Red Blood Count 4.16 x10^6/uL (3.50-5.40) Hemoglobin 12.0 g/dL (12.0-15.5) Hematocrit 35.4 % (36.0-47.0) Mean Corpuscular Volume 85 fL (79-100) Mean Corpuscular Hemoglobin 29 pg (25-35) Mean Corpuscular Hemoglobin Concent 34 g/dL (31-37) Red Cell Distribution Width 13.8 % (11.5-14.5) Platelet Count 316 x10^3/uL (140-400) Neutrophils (%) (Auto) 53 % (31-73) Lymphocytes (%) (Auto) 35 % (24-48) Monocytes (%) (Auto) 10 % (0-9) Eosinophils (%) (Auto) 3 % (0-3) Basophils (%) (Auto) 1 % (0-3) Neutrophils # (Auto) 3.0 x10^3/uL (1.8-7.7) Lymphocytes # (Auto) 2.0 x10^3/uL (1.0-4.8) Monocytes # (Auto) 0.6 x10^3/uL (0.0-1.1) Eosinophils # (Auto) 0.1 x10^3/uL (0.0-0.7) Basophils # (Auto) 0.0 x10^3/uL (0.0-0.2) Sodium Level 135 mmol/L (136-145) Potassium Level 3.8 mmol/L (3.5-5.1) Chloride Level 99 mmol/L (98-107) Carbon Dioxide Level 29 mmol/L (21-32) Anion Gap 7 (6-14) Blood Urea Nitrogen 17 mg/dL (7-20) Creatinine 0.9 mg/dL (0.6-1.0) Estimated GFR (Cockcroft-Gault) 61.2 Glucose Level 86 mg/dL (70-99) Calcium Level 9.8 mg/dL (8.5-10.1) Triglycerides Level 112 mg/dL (0-150) Cholesterol Level 135 mg/dL (0-200) LDL Cholesterol, Calculated 55 mg/dL (0-100) VLDL Cholesterol, Calculated 22 mg/dL (0-40) Non-HDL Cholesterol Calculated 77 mg/dL (0-129) HDL Cholesterol 58 mg/dL (40-60) Cholesterol/HDL Ratio 2.3 Medications Current Medications Labetalol HCl (Normodyne Iv Push) 10 mg 1X ONCE IVP Last administered on 05/19/19at 14:30; Start 05/19/19 at 14:15; Stop 05/19/19 at 14:16; Status DC Ondansetron HCl (Zofran) 4 mg PRN Q8HRS PRN IV NAUSEA/VOMITING; Start 05/19/19 at 14:30; Stop 05/20/19 at 14:29; Status DC Morphine Sulfate (Morphine Sulfate) 2 mg PRN Q2HR PRN IV PAIN; Start 05/19/19 at 14:30; Stop 05/20/19 at 14:29; Status DC Nitroglycerin (Nitrostat) 0.4 mg PRN Q5MIN PRN SL CHEST PAIN; Start 05/19/19 at 14:30; Stop 05/20/19 at 14:29; Status DC Amlodipine Besylate (Norvasc) 10 mg DAILY PO Last administered on 05/20/19at 08:35; Start 05/20/19 at 09:00 Atorvastatin Calcium (Lipitor) 20 mg HS PO Last administered on 05/20/19at 20:54; Start 05/19/19 at 21:00 Fluticasone Propionate (Flonase) 2 spray DAILY NS Last administered on at 08:35; Start 05/20/19 at 09:00 Hydrochlorothiazide (Hydrodiuril) 25 mg DAILY PO Last administered on 05/20/19at 08:35; Start 05/20/19 at 09:00 Levothyroxine Sodium (Synthroid) 75 mcg DAILY PO ; Start 05/20/19 at 09:00; Stop 05/20/19 at 06:48; Status DC Losartan Potassium (Cozaar) 100 mg DAILY PO Last administered on 05/20/19at 08:35; Start 05/20/19 at 09:00 Fenofibrate (Lofibra) 54 mg DAILY PO ; Start 05/20/19 at 09:00; Stop 05/19/19 at 20:39; Status DC Meloxicam (Mobic) 15 mg DAILY PO ; Start 05/20/19 at 09:00; Stop 05/19/19 at 20:39; Status DC Pantoprazole Sodium (Protonix) 40 mg DAILYAC PO Last administered on 05/20/19at 07:01; Start 05/20/19 at 07:30 Labetalol HCl (Normodyne Iv Push) 20 mg PRN Q6HRS PRN IVP HYPERTENSION Last administered on 05/20/19at 12:14; Start 05/19/19 at 17:00 Fenofibrate (Lofibra) 54 mg HS PO Last administered on 05/20/19at 20:54; Start 05/19/19 at 21:00 Meloxicam (Mobic) 15 mg HS PO Last administered on 05/20/19at 20:54; Start 05/19/19 at 21:00 Levothyroxine Sodium (Synthroid) 75 mcg DAILY07 PO Last administered on 05/21/19at 06:30; Start 05/20/19 at 07:00 Labetalol HCl (Trandate) 100 mg BID PO Last administered on 05/20/19at 16:38; Start 05/20/19 at 17:00 Active Scripts Active Reported Losartan Potassium 50 Mg Tablet 100 Mg PO DAILY Omeprazole 20 Mg Capsule.dr 1 Cap PO BID Meloxicam 15 Mg Tablet 1 Tab PO DAILY Levothyroxine Sodium 75 Mcg Tablet 1 Tab PO DAILY Hydrochlorothiazide Tablet (Hydrochlorothiazide) 25 Mg Tablet 1 Tab PO DAILY Fluticasone Propionate Nasal [place] (Fluticasone Propionate) 16 Gm [place].susp 2 [place] NS DAILY Fenofibrate (Fenofibrate Nanocrystallized) 145 Mg Tablet 0.5 Tab PO DAILY Atorvastatin Calcium 20 Mg Tablet 20 Mg PO HS Amlodipine Besylate 10 Mg Tablet 10 Mg PO DAILY Vitals/I & O Vital Sign - Last 24 Hours 05/20/19 05/20/19 05/20/19 05/20/19 08:35 08:35 11:05 11:40 Temp 97.8 97.8 Pulse 55 55 64 Resp 18 B/P (MAP) 132/54 132/54 162/59 (93) 171/72 (105) Pulse Ox 98 O2 Delivery Room Air 05/20/19 05/20/19 05/20/19 05/20/19 12:14 15:30 16:38 17:43 Temp 98.1 98.1 Pulse 64 61 61 59 Resp 20 B/P (MAP) 171/72 130/55 (80) 130/55 135/59 (84) Pulse Ox 96 O2 Delivery Room Air 05/20/19 05/20/19 05/20/19 05/21/19 19:36 20:00 23:42 03:56 Temp 98.3 97.7 98.3 98.3 97.7 98.3 Pulse 55 57 59 Resp 20 18 18 B/P (MAP) 128/54 (78) 140/62 (88) 144/62 (89) Pulse Ox 96 96 98 O2 Delivery Room Air Room Air Room Air Room Air 05/21/19 07:00 Temp 98.2 98.2 Pulse 55 Resp 16 B/P (MAP) 135/57 (83) Pulse Ox 95 O2 Delivery Room Air Intake and Output 05/20/19 05/20/19 05/21/19 14:59 22:59 06:59 Intake Total 300 ml 750 ml 200 ml Balance 300 ml 750 ml 200 ml BRADEN MAN MD May 21, 2019 08:29
[2019-05-21] MEDS: hydroCHLOROthiazide 25 MG TABLET PO SCH (08:46)
[2019-05-21] MEDS: amLODIPine BESYLATE 10 MG TABLET PO SCH (08:46)
[2019-05-21] MEDS: LOSARTAN POTASSIUM 50 MG TABLET. PO SCH (08:46)
[2019-05-21] MEDS: FLUTICASONE 50MCG/NASAL SPRAY 16GM BOTTLE. NS SCH (08:46)
[2019-05-21] MEDS: PANTOPRAZOLE 40 MG TABLET.DR. PO SCH (08:46)
[2019-05-21] MEDS: LABETALOL HCL 100 MG TABLET. PO SCH ×2 (08:50→20:12)
[2019-05-21 11:00] VITALS: BP 109/46
--- NOTE | 2019-05-21 11:14 | PDOC ---
PROGRESS NOTES Subjective Subjective Feeling better. Denied any dizziness. Objective Objective Vital Signs Date Time Temp Pulse Resp B/P (MAP) Pulse Ox O2 Delivery O2 Flow Rate FiO2 05/21/19 08:50 64 133/56 05/21/19 08:00 Room Air 05/21/19 07:00 98.2 16 95 98.2 Intake and Output 05/21/19 06:59 Intake Total 1250 ml Balance 1250 ml Intake Oral 1250 ml # Voids 2 Physical Exam Abdomen: Soft, No tenderness Heart: Regular rate Extremities: No edema General: Alert, Oriented X3 HEENT: Atraumatic, PERRLA Lungs: Clear to auscultation Psych/Mental Status: Mood NL Skin: No significant lesion Assessment Assessment 1. Near syncope, recurrent. She is in sinus rhythm and telemetry did not show any significant arrhythmia so far. Carotid arterial duplex scan did not show any significant carotid artery stenosis.. 2-D echo in June 2018 showed LVEF 70%. We will obtain an event monitor recording as an outpatient to rule out arrhythmic etiology. 2. Accelerated hypertension: Better controlled with labetalol. Renal arterial duplex scan did not show any significant stenosis. Continue current medical regimen. 3. Hyperlipidemia: Continue statin therapy 4. Hypothyroidism: Continue levothyroxine Plan Plan of Care Problems Medical Problems: (1) Dizziness Status: Acute (2) Hypertensive urgency Status: Acute Comment Review of Relevant I have reviewed the following items georgina (where applicable) has been applied. Labs Laboratory Tests Test 05/21/19 03:35 White Blood Count 5.7 x10^3/uL (4.0-11.0) Red Blood Count 4.16 x10^6/uL (3.50-5.40) Hemoglobin 12.0 g/dL (12.0-15.5) Hematocrit 35.4 % (36.0-47.0) Mean Corpuscular Volume 85 fL (79-100) Mean Corpuscular Hemoglobin 29 pg (25-35) Mean Corpuscular Hemoglobin Concent 34 g/dL (31-37) Red Cell Distribution Width 13.8 % (11.5-14.5) Platelet Count 316 x10^3/uL (140-400) Neutrophils (%) (Auto) 53 % (31-73) Lymphocytes (%) (Auto) 35 % (24-48) Monocytes (%) (Auto) 10 % (0-9) Eosinophils (%) (Auto) 3 % (0-3) Basophils (%) (Auto) 1 % (0-3) Neutrophils # (Auto) 3.0 x10^3/uL (1.8-7.7) Lymphocytes # (Auto) 2.0 x10^3/uL (1.0-4.8) Monocytes # (Auto) 0.6 x10^3/uL (0.0-1.1) Eosinophils # (Auto) 0.1 x10^3/uL (0.0-0.7) Basophils # (Auto) 0.0 x10^3/uL (0.0-0.2) Sodium Level 135 mmol/L (136-145) Potassium Level 3.8 mmol/L (3.5-5.1) Chloride Level 99 mmol/L (98-107) Carbon Dioxide Level 29 mmol/L (21-32) Anion Gap 7 (6-14) Blood Urea Nitrogen 17 mg/dL (7-20) Creatinine 0.9 mg/dL (0.6-1.0) Estimated GFR (Cockcroft-Gault) 61.2 Glucose Level 86 mg/dL (70-99) Calcium Level 9.8 mg/dL (8.5-10.1) Triglycerides Level 112 mg/dL (0-150) Cholesterol Level 135 mg/dL (0-200) LDL Cholesterol, Calculated 55 mg/dL (0-100) VLDL Cholesterol, Calculated 22 mg/dL (0-40) Non-HDL Cholesterol Calculated 77 mg/dL (0-129) HDL Cholesterol 58 mg/dL (40-60) Cholesterol/HDL Ratio 2.3 Medications Current Medications Labetalol HCl (Trandate) 100 mg BID PO Last administered on 05/21/19at 08:50; Start 05/20/19 at 17:00 Vitals/I & O Vital Sign - Last 24 Hours 05/20/19 05/20/19 05/20/19 05/20/19 11:40 12:14 15:30 16:38 Temp 98.1 98.1 Pulse 64 61 61 Resp 20 B/P (MAP) 171/72 (105) 171/72 130/55 (80) 130/55 Pulse Ox 96 O2 Delivery Room Air 05/20/19 05/20/19 05/20/19 05/20/19 17:43 19:36 20:00 23:42 Temp 98.3 97.7 98.3 97.7 Pulse 59 55 57 Resp 20 18 B/P (MAP) 135/59 (84) 128/54 (78) 140/62 (88) Pulse Ox 96 96 O2 Delivery Room Air Room Air Room Air 05/21/19 05/21/19 05/21/19 05/21/19 03:56 07:00 08:00 08:50 Temp 98.3 98.2 98.3 98.2 Pulse 59 55 55 Resp 18 16 B/P (MAP) 144/62 (89) 135/57 (83) 135/57 Pulse Ox 98 95 O2 Delivery Room Air Room Air Room Air 05/21/19 05/21/19 08:50 08:50 Pulse 55 64 B/P (MAP) 135/57 133/56 Intake and Output 05/20/19 05/20/19 05/21/19 14:59 22:59 06:59 Intake Total 300 ml 750 ml 200 ml Balance 300 ml 750 ml 200 ml JETT CASAS MD May 21, 2019 11:14
[2019-05-21 15:00] VITALS: BP 141/81
[2019-05-21 19:30] VITALS: BP 132/50
[2019-05-21] MEDS: FENOFIBRATE 54 MG TABLET. PO SCH (20:10)
[2019-05-21] MEDS: ATORVASTATIN CALCIUM 20 MG TABLET PO SCH (20:10)
[2019-05-21] MEDS: MELOXICAM 7.5 MG TABLET PO SCH (20:11)
[2019-05-21 23:59] VITALS: BP 136/60
[2019-05-22 03:30] VITALS: BP 125/55
[2019-05-22 07:00] VITALS: BP 124/53
[2019-05-22] MEDS: LEVOTHYROXINE 75 MCG TABLET PO SCH (07:06)
[2019-05-22] MEDS: LABETALOL HCL 100 MG TABLET. PO SCH ×2 (09:00→09:50)
[2019-05-22] MEDS: LOSARTAN POTASSIUM 50 MG TABLET. PO SCH (09:00)
[2019-05-22] MEDS: amLODIPine BESYLATE 10 MG TABLET PO SCH (09:00)
[2019-05-22] MEDS: FLUTICASONE 50MCG/NASAL SPRAY 16GM BOTTLE. NS SCH (09:05)
[2019-05-22] MEDS: hydroCHLOROthiazide 25 MG TABLET PO SCH (09:05)
[2019-05-22] MEDS: PANTOPRAZOLE 40 MG TABLET.DR. PO SCH (09:05)
--- NOTE | 2019-05-22 09:26 | PDOC ---
PROGRESS NOTES Chief Complaint Chief Complaint ASSESSMENT AND PLAN: Hypertensive emergency, remains labile Dizziness, near syncope. , metabolic encephalopathy, acute mild hyponatremia, improved hyperlipidemia BRADYCARDIA, MONITOR admitted. consult Cardiology, consult Neurology. Home meds, p.r.n. labetalol. PT, OT, DVT prophylaxis. Full code. tele bed neurochecks q 4 hrs doppler carotids follow italo flp 05/21 PLAN event monitor recording as an outpatient to rule out arrhyth 28 min pt exam, chart review, > 50% of time spent with exam, chart review, pt care coordination History of Present Illness History of Present Illness Ms De La Rosa is a 74-year-old woman w/ PMHx GERD, HLD, HTN, Hypothyroidism who has had 4 episodes of feeling funny in her head. Spells last about 10 minutes. Seen by neurology and cardiology, and due to her elevated BP of 190/100 was placed on additional BB and has instructions for outpatient event monitor. Had negative renal duplex and carotid dopplers. Has already had head imaging prior to admission. Seen by neurology and cardiology, recommended outpatient cardiac event monitor. Her BP has come down nicely, she is concerned about taking 3 BP meds given her BP. Vitals Vitals Vital Signs Date Time Temp Pulse Resp B/P (MAP) Pulse Ox O2 Delivery O2 Flow Rate FiO2 05/22/19 09:12 61 128/51 05/22/19 07:00 98.4 16 100 Room Air 98.4 Physical Exam Physical Exam HEENT: Head is normocephalic, atraumatic, pupils were equally round and reactive to light and accommodation. NECK: Supple, no JVD, no thyromegaly was noted. LUNGS: Clear to auscultation in all lung suarez without rhonchi or wheezing. HEART: RRR, S1, S2 present. Peripheral pulses intact, no obvious murmurs were noted. ABDOMEN: Soft, nontender. Positive bowel sounds no organomegaly, normal bowel sounds. EXTREMITIES: Without any cyanosis, clubbing, or edema. Pedal pulses intact, Homans sign is negative. NEUROLOGIC: Normal speech, normal tone. A & O x3, moves all extremities, no obvious focal deficits. PSYCHIATRIC: Normal affect, normal mood. Stable. SKIN: No ulcerations or rashes, good skin turgor, no jaundice. VASCULAR: Good capillary refill, neurovascular bundle appears to be intact. General: Alert, Oriented X3 Heart: Regular rate Lungs: Clear Abdomen: Soft, No tenderness Extremities: No edema Skin: No significant lesion Assessment and Plan Assessmemt and Plan Problems Medical Problems: (1) Dizziness Status: Acute (2) HLD (hyperlipidemia) Status: Chronic (3) Hypertensive urgency Status: Acute (4) Hypothyroidism Status: Chronic (5) Near syncope Status: Acute Comment Review of Relevant I have reviewed the following items georgina (where applicable) has been applied. Labs Laboratory Tests Test 05/21/19 03:35 White Blood Count 5.7 x10^3/uL (4.0-11.0) Red Blood Count 4.16 x10^6/uL (3.50-5.40) Hemoglobin 12.0 g/dL (12.0-15.5) Hematocrit 35.4 % (36.0-47.0) Mean Corpuscular Volume 85 fL (79-100) Mean Corpuscular Hemoglobin 29 pg (25-35) Mean Corpuscular Hemoglobin Concent 34 g/dL (31-37) Red Cell Distribution Width 13.8 % (11.5-14.5) Platelet Count 316 x10^3/uL (140-400) Neutrophils (%) (Auto) 53 % (31-73) Lymphocytes (%) (Auto) 35 % (24-48) Monocytes (%) (Auto) 10 % (0-9) Eosinophils (%) (Auto) 3 % (0-3) Basophils (%) (Auto) 1 % (0-3) Neutrophils # (Auto) 3.0 x10^3/uL (1.8-7.7) Lymphocytes # (Auto) 2.0 x10^3/uL (1.0-4.8) Monocytes # (Auto) 0.6 x10^3/uL (0.0-1.1) Eosinophils # (Auto) 0.1 x10^3/uL (0.0-0.7) Basophils # (Auto) 0.0 x10^3/uL (0.0-0.2) Sodium Level 135 mmol/L (136-145) Potassium Level 3.8 mmol/L (3.5-5.1) Chloride Level 99 mmol/L (98-107) Carbon Dioxide Level 29 mmol/L (21-32) Anion Gap 7 (6-14) Blood Urea Nitrogen 17 mg/dL (7-20) Creatinine 0.9 mg/dL (0.6-1.0) Estimated GFR (Cockcroft-Gault) 61.2 Glucose Level 86 mg/dL (70-99) Calcium Level 9.8 mg/dL (8.5-10.1) Triglycerides Level 112 mg/dL (0-150) Cholesterol Level 135 mg/dL (0-200) LDL Cholesterol, Calculated 55 mg/dL (0-100) VLDL Cholesterol, Calculated 22 mg/dL (0-40) Non-HDL Cholesterol Calculated 77 mg/dL (0-129) HDL Cholesterol 58 mg/dL (40-60) Cholesterol/HDL Ratio 2.3 Medications Current Medications Labetalol HCl (Normodyne Iv Push) 10 mg 1X ONCE IVP Last administered on 05/19/19at 14:30; Start 05/19/19 at 14:15; Stop 05/19/19 at 14:16; Status DC Ondansetron HCl (Zofran) 4 mg PRN Q8HRS PRN IV NAUSEA/VOMITING; Start 05/19/19 at 14:30; Stop 05/20/19 at 14:29; Status DC Morphine Sulfate (Morphine Sulfate) 2 mg PRN Q2HR PRN IV PAIN; Start 05/19/19 at 14:30; Stop 05/20/19 at 14:29; Status DC Nitroglycerin (Nitrostat) 0.4 mg PRN Q5MIN PRN SL CHEST PAIN; Start 05/19/19 at 14:30; Stop 05/20/19 at 14:29; Status DC Amlodipine Besylate (Norvasc) 10 mg DAILY PO Last administered on 05/21/19at 08:50; Start 05/20/19 at 09:00 Atorvastatin Calcium (Lipitor) 20 mg HS PO Last administered on 05/21/19at 20:13; Start 05/19/19 at 21:00 Fluticasone Propionate (Flonase) 2 spray DAILY NS Last administered on 05/22/19at 09:10; Start 05/20/19 at 09:00 Hydrochlorothiazide (Hydrodiuril) 25 mg DAILY PO Last administered on 05/22/19at 09:10; Start 05/20/19 at 09:00 Levothyroxine Sodium (Synthroid) 75 mcg DAILY PO ; Start 05/20/19 at 09:00; Stop 05/20/19 at 06:48; Status DC Losartan Potassium (Cozaar) 100 mg DAILY PO Last administered on 05/21/19at 08:50; Start 05/20/19 at 09:00 Fenofibrate (Lofibra) 54 mg DAILY PO ; Start 05/20/19 at 09:00; Stop 05/19/19 at 20:39; Status DC Meloxicam (Mobic) 15 mg DAILY PO ; Start 05/20/19 at 09:00; Stop 05/19/19 at 20:39; Status DC Pantoprazole Sodium (Protonix) 40 mg DAILYAC PO Last administered on 05/22/19at 09:10; Start 05/20/19 at 07:30 Labetalol HCl (Normodyne Iv Push) 20 mg PRN Q6HRS PRN IVP HYPERTENSION Last administered on 05/20/19at 12:14; Start 05/19/19 at 17:00 Fenofibrate (Lofibra) 54 mg HS PO Last administered on 05/21/19at 20:13; Start 05/19/19 at 21:00 Meloxicam (Mobic) 15 mg HS PO Last administered on 05/21/19at 20:13; Start 05/19/19 at 21:00 Levothyroxine Sodium (Synthroid) 75 mcg DAILY07 PO Last administered on 05/22/19at 07:07; Start 05/20/19 at 07:00 Labetalol HCl (Trandate) 100 mg BID PO Last administered on 05/21/19at 20:13; Start 05/20/19 at 17:00 Active Scripts Active Reported Losartan Potassium 50 Mg Tablet 100 Mg PO DAILY Omeprazole 20 Mg Capsule.dr 1 Cap PO BID Meloxicam 15 Mg Tablet 1 Tab PO DAILY Levothyroxine Sodium 75 Mcg Tablet 1 Tab PO DAILY Hydrochlorothiazide Tablet (Hydrochlorothiazide) 25 Mg Tablet 1 Tab PO DAILY Fluticasone Propionate Nasal Mcdonald (Fluticasone Propionate) 16 Gm Mcdonald.susp 2 Mcdonald NS DAILY Fenofibrate (Fenofibrate Nanocrystallized) 145 Mg Tablet 0.5 Tab PO DAILY Atorvastatin Calcium 20 Mg Tablet 20 Mg PO HS Amlodipine Besylate 10 Mg Tablet 10 Mg PO DAILY Vitals/I & O Vital Sign - Last 24 Hours 05/21/19 05/21/19 05/21/19 05/21/19 11:00 15:00 19:30 20:00 Temp 98.4 97.7 97.4 98.4 97.7 97.4 Pulse 56 63 56 Resp 18 16 20 B/P (MAP) 109/46 (67) 141/81 (101) 132/50 (77) Pulse Ox 95 98 96 O2 Delivery Room Air Room Air Room Air Room Air 05/21/19 05/21/19 05/22/19 05/22/19 20:13 23:59 03:30 07:00 Temp 97.6 97.8 98.4 97.6 97.8 98.4 Pulse 61 61 52 Resp 18 18 16 B/P (MAP) 151/53 136/60 (85) 125/55 (78) 124/53 (76) Pulse Ox 97 96 100 O2 Delivery Room Air Room Air Room Air 05/22/19 05/22/19 05/22/19 09:10 09:12 09:12 Pulse 61 61 61 B/P (MAP) 128/51 128/51 128/51 Intake and Output 05/21/19 05/21/19 05/22/19 14:59 22:59 06:59 Intake Total 480 ml 300 ml 100 ml Balance 480 ml 300 ml 100 ml MONSERRAT JHA MD May 22, 2019 09:26
[2019-05-22 11:16] VITALS: BP 116/48
--- NOTE | 2019-05-22 11:38 | PDOC ---
PROGRESS NOTES Assessment Problems Medical Problems: (1) Dizziness Status: Acute (2) HLD (hyperlipidemia) Status: Chronic (3) Hypertensive urgency Status: Acute (4) Hypothyroidism Status: Chronic (5) Near syncope Status: Acute "Spells" representing hypertensive encephalopathy, no evidence of seizure, cerebral vascular disease, other primary neurological issue Plan Agree with outpatient cardiac event monitoring No further neurological tests required Okay for discharge Subjective No complaints Objective Vital Signs Date Time Temp Pulse Resp B/P (MAP) Pulse Ox O2 Delivery O2 Flow Rate FiO2 05/22/19 11:16 98.1 50 18 116/48 (70) 99 Room Air 98.1 Intake and Output 05/22/19 06:59 Intake Total 880 ml Balance 880 ml Intake Oral 880 ml PHYSICAL EXAM Alert. Oriented to time, place and person. PERRL. EOMI. CN: no focal findings. Muscle tone: normal. Muscle strength: 5/5 DTR: 2+ Plantar reflex: flexor Gait: not examined in bed. Sensory exam: no abnormal findings. No cerebellar signs elicited. Review of Relevant I have reviewed the following items georgina (where applicable) has been applied. Labs Laboratory Tests Test 05/21/19 03:35 White Blood Count 5.7 x10^3/uL (4.0-11.0) Red Blood Count 4.16 x10^6/uL (3.50-5.40) Hemoglobin 12.0 g/dL (12.0-15.5) Hematocrit 35.4 % (36.0-47.0) Mean Corpuscular Volume 85 fL (79-100) Mean Corpuscular Hemoglobin 29 pg (25-35) Mean Corpuscular Hemoglobin Concent 34 g/dL (31-37) Red Cell Distribution Width 13.8 % (11.5-14.5) Platelet Count 316 x10^3/uL (140-400) Neutrophils (%) (Auto) 53 % (31-73) Lymphocytes (%) (Auto) 35 % (24-48) Monocytes (%) (Auto) 10 % (0-9) Eosinophils (%) (Auto) 3 % (0-3) Basophils (%) (Auto) 1 % (0-3) Neutrophils # (Auto) 3.0 x10^3/uL (1.8-7.7) Lymphocytes # (Auto) 2.0 x10^3/uL (1.0-4.8) Monocytes # (Auto) 0.6 x10^3/uL (0.0-1.1) Eosinophils # (Auto) 0.1 x10^3/uL (0.0-0.7) Basophils # (Auto) 0.0 x10^3/uL (0.0-0.2) Sodium Level 135 mmol/L (136-145) Potassium Level 3.8 mmol/L (3.5-5.1) Chloride Level 99 mmol/L (98-107) Carbon Dioxide Level 29 mmol/L (21-32) Anion Gap 7 (6-14) Blood Urea Nitrogen 17 mg/dL (7-20) Creatinine 0.9 mg/dL (0.6-1.0) Estimated GFR (Cockcroft-Gault) 61.2 Glucose Level 86 mg/dL (70-99) Calcium Level 9.8 mg/dL (8.5-10.1) Triglycerides Level 112 mg/dL (0-150) Cholesterol Level 135 mg/dL (0-200) LDL Cholesterol, Calculated 55 mg/dL (0-100) VLDL Cholesterol, Calculated 22 mg/dL (0-40) Non-HDL Cholesterol Calculated 77 mg/dL (0-129) HDL Cholesterol 58 mg/dL (40-60) Cholesterol/HDL Ratio 2.3 Medications Current Medications Labetalol HCl (Normodyne Iv Push) 10 mg 1X ONCE IVP Last administered on 05/19/19at 14:30; Start 05/19/19 at 14:15; Stop 05/19/19 at 14:16; Status DC Ondansetron HCl (Zofran) 4 mg PRN Q8HRS PRN IV NAUSEA/VOMITING; Start 05/19/19 at 14:30; Stop 05/20/19 at 14:29; Status DC Morphine Sulfate (Morphine Sulfate) 2 mg PRN Q2HR PRN IV PAIN; Start 05/19/19 at 14:30; Stop 05/20/19 at 14:29; Status DC Nitroglycerin (Nitrostat) 0.4 mg PRN Q5MIN PRN SL CHEST PAIN; Start 05/19/19 at 14:30; Stop 05/20/19 at 14:29; Status DC Amlodipine Besylate (Norvasc) 10 mg DAILY PO Last administered on 05/21/19 08:50; Start 05/20/19 at 09:00 Atorvastatin Calcium (Lipitor) 20 mg HS PO Last administered on 05/21/19 20:13; Start 05/19/19 at 21:00 Fluticasone Propionate (Flonase) 2 spray DAILY NS Last administered on 05/22/19 09:10; Start 05/20/19 at 09:00 Hydrochlorothiazide (Hydrodiuril) 25 mg DAILY PO Last administered on 05/22/19 09:10; Start 05/20/19 at 09:00 Levothyroxine Sodium (Synthroid) 75 mcg DAILY PO ; Start 05/20/19 at 09:00; Stop 05/20/19 at 06:48; Status DC Losartan Potassium (Cozaar) 100 mg DAILY PO Last administered on 05/21/19 08:50; Start 05/20/19 at 09:00 Fenofibrate (Lofibra) 54 mg DAILY PO ; Start 05/20/19 at 09:00; Stop 05/19/19 at 20:39; Status DC Meloxicam (Mobic) 15 mg DAILY PO ; Start 05/20/19 at 09:00; Stop 05/19/19 at 20:39; Status DC Pantoprazole Sodium (Protonix) 40 mg DAILYAC PO Last administered on 05/22/19 09:10; Start 05/20/19 at 07:30 Labetalol HCl (Normodyne Iv Push) 20 mg PRN Q6HRS PRN IVP HYPERTENSION Last administered on 05/20/19 12:14; Start 05/19/19 at 17:00 Fenofibrate (Lofibra) 54 mg HS PO Last administered on 05/21/19 20:13; Start 05/19/19 at 21:00 Meloxicam (Mobic) 15 mg HS PO Last administered on 05/21/19 20:13; Start 05/19/19 at 21:00 Levothyroxine Sodium (Synthroid) 75 mcg DAILY07 PO Last administered on 05/22/19 07:07; Start 05/20/19 at 07:00 Labetalol HCl (Trandate) 100 mg BID PO Last administered on 05/22/19 09:50; Start 05/20/19 at 17:00 Active Scripts Active Reported Losartan Potassium 50 Mg Tablet 100 Mg PO DAILY Omeprazole 20 Mg Capsule.dr 1 Cap PO BID Meloxicam 15 Mg Tablet 1 Tab PO DAILY Levothyroxine Sodium 75 Mcg Tablet 1 Tab PO DAILY Hydrochlorothiazide Tablet (Hydrochlorothiazide) 25 Mg Tablet 1 Tab PO DAILY Fluticasone Propionate Nasal Sargent (Fluticasone Propionate) 16 Gm Sargent.susp 2 Sargent NS DAILY Fenofibrate (Fenofibrate Nanocrystallized) 145 Mg Tablet 0.5 Tab PO DAILY Atorvastatin Calcium 20 Mg Tablet 20 Mg PO HS Amlodipine Besylate 10 Mg Tablet 10 Mg PO DAILY Vitals/I & O Vital Sign - Last 24 Hours 05/21/19 05/21/19 05/21/19 05/21/19 15:00 19:30 20:00 20:13 Temp 97.7 97.4 97.7 97.4 Pulse 63 56 Resp 16 20 B/P (MAP) 141/81 (101) 132/50 (77) 151/53 Pulse Ox 98 96 O2 Delivery Room Air Room Air Room Air 05/21/19 05/22/19 05/22/19 05/22/19 23:59 03:30 07:00 09:10 Temp 97.6 97.8 98.4 97.6 97.8 98.4 Pulse 61 61 52 61 Resp 18 18 16 B/P (MAP) 136/60 (85) 125/55 (78) 124/53 (76) 128/51 Pulse Ox 97 96 100 O2 Delivery Room Air Room Air Room Air 05/22/19 05/22/19 05/22/19 09:12 09:50 11:16 Temp 98.1 98.1 Pulse 61 60 50 Resp 18 B/P (MAP) 128/51 136/48 116/48 (70) Pulse Ox 99 O2 Delivery Room Air Intake and Output 05/21/19 05/21/19 05/22/19 14:59 22:59 06:59 Intake Total 480 ml 300 ml 100 ml Balance 480 ml 300 ml 100 ml Images Carotid doppler ultrasound History: Syncope Multiple grayscale, color, and duplex spectral analysis waveform sonographic images were acquired of the carotid, subclavian, and vertebral arteries. Comparison: None Findings: RIGHT: PSV cm/sec EDV cm/sec Common carotid artery 85 20 Maximal internal carotid artery 66 26 External carotid artery 85 Vertebral artery 37 ICA/CCA ratio 0.78 LEFT: PSV cm/sec EDV cm/sec Common carotid artery 72 23 Maximum internal carotid artery 60 23 External carotid artery 80 Vertebral artery 51 ICA/CCA ratio 0.83 Velocities used to determine stenosis are known to correlate with NASCET angiographic criteria. There is antegrade flow in the bilateral vertebral arteries. No significant stenosis is demonstrated on grayscale or color images. There is minimal plaque. Impression: 1. There is no evidence of a hemodynamically significant stenosis. JABIER GIBBS MD May 22, 2019 11:38
--- NOTE | 2019-05-22 11:40 | CARD ---
MR#: [id number] Date of Study: 05/22/2019 Ordering Physician: BRADEN MAN, Referring Physician: BRADEN MAN, Tech: Danica Garcia RDCS APPROVED REPORT EXAM: Two-dimensional and M-mode echocardiogram with Doppler and color Doppler. Other Information Quality : Good INDICATION Hypertension/HCVD 2D DIMENSIONS RVDd2.1 (2.9-3.5cm)Left Atrium(2D)2.4 (1.6-4.0cm) IVSd0.9 (0.7-1.1cm)Aortic Root(2D)2.8 (2.0-3.7cm) LVDd4.0 (3.9-5.9cm)LVOT Diameter1.9 (1.8-2.4cm) PWd0.9 (0.7-1.1cm)LVDs1.9 (2.5-4.0cm) FS (%) 30.0 %SV58.4 ml LVEF(%)60.0 (>50%) Aortic Valve AoV Peak [place].157.1cm/sAoV VTI33.3cm AO Peak GR.9.9mmHgLVOT Peak [place].154.3cm/s LVOT VTI 35.71cmAO Mean GR.5mmHg JOSE (VMAX)2.92ew1AKI (VTI)2.96cm2 Mitral Valve MV E Hxgvbkis05.4cm/sMV DECEL CEFN139fp MV A Nlhchuqx26.4cm/sMV VIN63wv E/A Ratio1.3MVA (PHT)3.81cm2 TDI E/Lateral E'10.9E/Medial E'14.2 Tricuspid Valve TR P. Ygxncpxc910fw/sRAP ANHFNSOZ9tyKi TR Peak Gr.48olHsHYCV65ceDv Pulmonary Vein S1 Ibvcuxqt28.4cm/sD2 Cngfdhgi51.2cm/s LEFT VENTRICLE The left ventricle is normal size. There is normal left ventricular wall thickness. The left ventricu lar systolic function is normal. The Ejection Fraction is 55-60%. There is normal LV segmental wall m otion. RIGHT VENTRICLE The right ventricle is normal size. The right ventricular systolic function is normal. ATRIA The left atrium size is normal. The right atrium size is normal. The interatrial septum is intact wit h no evidence for an atrial septal defect or patent foramen ovale as noted on 2-D or Doppler imaging. AORTIC VALVE The aortic valve is calcified but opens well. Doppler and Color Flow revealed trace aortic regurgitat ion. There is no significant aortic valvular stenosis. MITRAL VALVE The mitral valve is calcified but opens well. There is no evidence of mitral valve prolapse. There is no mitral valve stenosis. Doppler and Color-flow revealed trace to mild mitral regurgitation. TRICUSPID VALVE The tricuspid valve is normal in structure and function. Doppler and Color Flow revealed mild tricusp id regurgitation. The PA pressure was estimated at 31 mmHg. There is no tricuspid valve stenosis. PULMONIC VALVE The pulmonic valve is not well visualized. Doppler and Color Flow revealed trace pulmonic valvular re gurgitation. There is no pulmonic valvular stenosis. GREAT VESSELS The aortic root is normal in size. The ascending aorta is normal in size. The IVC is normal in size a nd collapses >50% with inspiration. PERICARDIAL EFFUSION There is no evidence of significant pericardial effusion. Critical Notification Critical Value: No <Conclusion> The left ventricular systolic function is normal. The Ejection Fraction is 55-60%. There is normal LV segmental wall motion. Trace to mild mitral regurgitation. Mild tricuspid regurgitation. The PA pressure was estimated at 31 mmHg. There is no evidence of significant pericardial effusion. Signed by : Biju Fernandez, Electronically Approved : 05/22/2019 11:39:57
[2019-05-22] MEDS ORDERED: LABE100T5 PO (12:21)
--- NOTE | 2019-05-22 12:25 | PDOC3 ---
Discharge Summary Visit Information Date of Admission: May 19, 2019 Date of Discharge: May 22, 2019 Admitting Diagnosis: HTN urgency Final Diagnosis Problems Medical Problems: (1) Dizziness Status: Acute (2) HLD (hyperlipidemia) Status: Chronic (3) Hypertensive urgency Status: Acute (4) Hypothyroidism Status: Chronic (5) Near syncope Status: Acute Brief Hospital Course Allergies Allergies Coded Allergies Type Severity Reaction Last Updated Verified feathers Allergy Severe SOA 05/19/19 Yes Sulfa (Sulfonamide Antibiotics) Allergy Intermediate rash 05/19/19 Yes azelastine Allergy Intermediate 05/19/19 Yes cephalexin Allergy Intermediate 05/19/19 Yes egg Allergy Intermediate diarrhea 05/19/19 Yes nitrofurantoin Allergy Intermediate 05/19/19 Yes aspirin Adverse Reaction Mild irritates stomach 05/19/19 Yes esomeprazole Adverse Reaction Mild lightheaded 05/19/19 Yes Vital Signs Vital Signs Date Time Temp Pulse Resp B/P (MAP) Pulse Ox O2 Delivery O2 Flow Rate FiO2 05/22/19 11:16 98.1 50 18 116/48 (70) 99 Room Air 98.1 Lab Results Laboratory Tests Test 05/21/19 03:35 White Blood Count 5.7 x10^3/uL (4.0-11.0) Red Blood Count 4.16 x10^6/uL (3.50-5.40) Hemoglobin 12.0 g/dL (12.0-15.5) Hematocrit 35.4 % (36.0-47.0) Mean Corpuscular Volume 85 fL (79-100) Mean Corpuscular Hemoglobin 29 pg (25-35) Mean Corpuscular Hemoglobin Concent 34 g/dL (31-37) Red Cell Distribution Width 13.8 % (11.5-14.5) Platelet Count 316 x10^3/uL (140-400) Neutrophils (%) (Auto) 53 % (31-73) Lymphocytes (%) (Auto) 35 % (24-48) Monocytes (%) (Auto) 10 % (0-9) Eosinophils (%) (Auto) 3 % (0-3) Basophils (%) (Auto) 1 % (0-3) Neutrophils # (Auto) 3.0 x10^3/uL (1.8-7.7) Lymphocytes # (Auto) 2.0 x10^3/uL (1.0-4.8) Monocytes # (Auto) 0.6 x10^3/uL (0.0-1.1) Eosinophils # (Auto) 0.1 x10^3/uL (0.0-0.7) Basophils # (Auto) 0.0 x10^3/uL (0.0-0.2) Sodium Level 135 mmol/L (136-145) Potassium Level 3.8 mmol/L (3.5-5.1) Chloride Level 99 mmol/L (98-107) Carbon Dioxide Level 29 mmol/L (21-32) Anion Gap 7 (6-14) Blood Urea Nitrogen 17 mg/dL (7-20) Creatinine 0.9 mg/dL (0.6-1.0) Estimated GFR (Cockcroft-Gault) 61.2 Glucose Level 86 mg/dL (70-99) Calcium Level 9.8 mg/dL (8.5-10.1) Triglycerides Level 112 mg/dL (0-150) Cholesterol Level 135 mg/dL (0-200) LDL Cholesterol, Calculated 55 mg/dL (0-100) VLDL Cholesterol, Calculated 22 mg/dL (0-40) Non-HDL Cholesterol Calculated 77 mg/dL (0-129) HDL Cholesterol 58 mg/dL (40-60) Cholesterol/HDL Ratio 2.3 Brief Hospital Course Ms De La Rosa is a 74-year-old woman w/ PMHx GERD, HLD, HTN, Hypothyroidism who has had 4 episodes of feeling funny in her head. Spells last about 10 minutes. Seen by neurology and cardiology, and due to her elevated BP of 190/100 was placed on additional BB and has instructions for outpatient event monitor. Had negative renal duplex and carotid dopplers. Has already had head imaging prior to admission. Seen by neurology and cardiology, recommended outpatient cardiac event monitor. Her BP has come down nicely, she is concerned about taking 3 BP meds given her BP. I have advised amlodipine at night and losartan/HCTZ and to take BP QAM and in the afternoon. Echo The left ventricular systolic function is normal. The Ejection Fraction is 55-60%. There is normal LV segmental wall motion. Trace to mild mitral regurgitation. Mild tricuspid regurgitation. The PA pressure was estimated at 31 mmHg. There is no evidence of significant pericardial effusion. ASSESSMENT AND PLAN: Hypertensive emergency, remains labile Dizziness, near syncope. , metabolic encephalopathy, acute mild hyponatremia, improved hyperlipidemia BRADYCARDIA, MONITOR admitted. consulted Cardiology, consulted Neurology. Home meds, PLAN event monitor recording as an outpatient to rule out arrhyth 34 min pt exam, chart review, > 50% of time spent with exam, chart review, pt c are coordination Discharge Information Condition at Discharge: Improved Follow Up: Weeks (1) Disposition/Orders: D/C to Home Scheduled Amlodipine Besylate (Amlodipine Besylate) 10 Mg Tablet, 10 MG PO DAILY, (Reported) Entered as Reported by: PABLO HENDERSON on 10/27/171922 Last Action: Continued on 05/19/191644 by JOYCE MENDOZA RN Atorvastatin Calcium (Atorvastatin Calcium) 20 Mg Tablet, 20 MG PO HS for FOR CHOLESTEROL, #30 Ref 0 (Reported) Entered as Reported by: PABLO HENDERSON on 10/27/171922 Last Action: Continued on 05/19/191644 by JOYCE MENDOZA RN Fenofibrate Nanocrystallized (Fenofibrate) 145 Mg Tablet, 0.5 TAB PO DAILY, #30 Ref 5 (Reported) Entered as Reported by: PABLO HENDERSON on 10/27/171922 Last Action: Converted on 05/19/191644 by JOYCE MENDOZA RN Fluticasone Propionate (Fluticasone Propionate Nasal Uvalda) 16 Gm Uvalda.susp, 2 SPRAY NS DAILY, #1 Ref 11 (Reported) Entered as Reported by: PABLO HENDERSON on 10/27/171922 Last Action: Continued on 05/19/191644 by JOYCE MENDOZA RN Hydrochlorothiazide (Hydrochlorothiazide Tablet ) 25 Mg Tablet, 1 TAB PO DAILY, #30 Ref 5 (Reported) Entered as Reported by: PABLO HENDERSON on 10/27/171922 Last Action: Continued on 05/19/191644 by JOYCE MENDOZA RN Labetalol Hcl (Labetalol Hcl) 100 Mg Tablet, 100 MG PO BID for HTN for 30 Days, #60 Ref 2 Hold if HR < 60bpm, take if HR > 90bpm Hold if SBP <140mmHg or DBP < 60mmHg Prescribed by: MONSERRAT JHA MD on 05/22/19 1221 Levothyroxine Sodium (Levothyroxine Sodium) 75 Mcg Tablet, 1 TAB PO DAILY, #30 Ref 5 (Reported) Entered as Reported by: PABLO HENDERSON on 10/27/171922 Last Action: Continued on 05/19/191644 by JOYCE MENDOZA RN Losartan Potassium (Losartan Potassium) 50 Mg Tablet, 100 MG PO DAILY, (Reported) Entered as Reported by: PABLO HENDERSON on 10/27/171922 Last Action: Continued on 05/19/191644 by JOYCE MENDOZA RN Meloxicam (Meloxicam) 15 Mg Tablet, 1 TAB PO DAILY, #30 Ref 2 (Reported) Entered as Reported by: PABLO HENDERSON on 10/27/171922 Last Action: Converted on 05/19/191644 by JOYCE MENDOZA RN Omeprazole (Omeprazole) 20 Mg Capsule., 1 CAP PO BID, #30 Ref 5 (Reported) Entered as Reported by: PABLO HENDERSON on 10/27/171922 Last Action: Converted on 05/19/191644 by ROCIO VELEZ CHRISTOPHER S MD May 22, 2019 12:25
[2019-05-22 14:39] VITALS: BP 105/46
--- NOTE | 2019-05-22 16:12 | NUR ---
Discharge Note: MARY ANN KAY [address] Discharge instructions and discharge home medications reviewed with Patient and a copy given. All questions have been answered and understanding verbalized. The following instructions and handouts were given: HTN Discontinued lines and drains: peripheral line. Patient discharged to Home or Self Care with Family Member via Wheelchair
== END 2019-05-22 16:13 | disposition home or self-care (01) | DRG 304 ==
LOC: ER 12:35 → 6 SOUTH 14:18
PROVIDERS: ADMIT Internal Medicine; ATTEND Internal Medicine
DX: I16.1 Hypertensive emergency (principal); G93.41 Metabolic encephalopathy; E87.1 Hypo-osmolality and hyponatremia; K21.9 Gastro-esophageal reflux disease without esophagitis; E78.00 Pure hypercholesterolemia, unspecified; I10 Essential (primary) hypertension; E03.9 Hypothyroidism, unspecified; E78.5 Hyperlipidemia, unspecified; Z90.49 Acquired absence of other specified parts of digestive tract; Z88.2 Allergy status to sulfonamides; Z88.8 Allergy status to other drugs, medicaments and biological substances; Z88.6 Allergy status to analgesic agent; Z88.1 Allergy status to other antibiotic agents; Z91.012 Allergy to eggs; Z82.49 Family history of ischemic heart disease and other diseases of the circulatory system
CPT/HCPCS: 36415; 71046; 76770; 80048; 80053; 80061; 81001; 84484; 85025; 93005; 93306; 93880; 96374; J3490; 99285-25; G0378

== ENCOUNTER → 2021-01-14 | Outpatient (CLI) | payer MEDICARE ==
[~2021-01-14] MED LIST changes: +AMLO-187 PO; -AMLO10TA8 PO; +FENO145T3 PO; -FENO145T30 PO; +LABE100T5 PO; -OMEP20CA10 PO; +OMEP20CA16 PO
--- NOTE | 2021-01-15 12:42 | CARD ---
MR#: [id number] Date of Study: 01/14/2021 Ordering Physician: JETT CASAS, Referring Physician: JETT CASAS Tech: Apoorva Maxwell [facility] APPROVED REPORT EXAM: Two-dimensional and M-mode echocardiogram with Doppler and color Doppler. Other Information Quality : FairHR: 63bpm Rhythm : NSR INDICATION Dyspnea RISK FACTORS Hypertension Hyperlipidemia 2D DIMENSIONS RVDd3.0 (2.9-3.5cm)Left Atrium(2D)2.8 (1.6-4.0cm) IVSd0.9 (0.7-1.1cm)Aortic Root(2D)3.1 (2.0-3.7cm) LVDd4.0 (3.9-5.9cm)LVOT Diameter1.9 (1.8-2.4cm) PWd0.8 (0.7-1.1cm)LVDs1.9 (2.5-4.0cm) FS (%) 52.9 %SV58.9 ml LVEF(%)84.4 (>50%) Aortic Valve AoV Peak [place].149.2cm/sAoV VTI34.0cm AO Peak GR.8.9mmHgLVOT Peak [place].138.7cm/s AO Mean GR.4mmHgAVA (VMAX)2.55cm2 Mitral Valve MV E Dqnkinwz35.2cm/sMV DECEL [id number] MV A Qzlkvggk63.1cm/sE/A Ratio1.1 Tricuspid Valve TR P. Ixotxniv079xo/sTR Peak Gr.29mmHg Pulmonary Vein S1 Rqejpavh19.7cm/sD2 Dwtqicch60.4cm/s PVa [id number] LEFT VENTRICLE The left ventricle is normal size. There is normal left ventricular wall thickness. The left ventricu lar systolic function is normal and the ejection fraction is within normal range. Estimated ejection fraction 60-65%. There is normal LV segmental wall motion. The left ventricular diastolic function an d filling is normal for age. RIGHT VENTRICLE The right ventricle is normal size. There is normal right ventricular wall thickness. The right ventr icular systolic function is normal. ATRIA The left atrium size is normal. The right atrium size is normal. The interatrial septum is intact wit h no evidence for an atrial septal defect or patent foramen ovale as noted on 2-D or Doppler imaging. AORTIC VALVE The aortic valve is normal in structure and function. Doppler and Color Flow revealed no significant aortic regurgitation. There is no significant aortic valvular stenosis. MITRAL VALVE The mitral valve is normal in structure and function. There is no evidence of mitral valve prolapse. There is no mitral valve stenosis. Doppler and Color-flow revealed mild mitral regurgitation. TRICUSPID VALVE The tricuspid valve is normal in structure and function. Doppler and Color Flow revealed mild tricusp id regurgitation. RVSP 30 mm Hg There is no tricuspid valve stenosis. PULMONIC VALVE Doppler and Color Flow revealed no pulmonic valvular regurgitation. There is no pulmonic valvular swetha nosis. GREAT VESSELS The aortic root is normal in size. The ascending aorta is normal in size. The IVC is normal in size a nd collapses >50% with inspiration. PERICARDIAL EFFUSION There is no evidence of significant pericardial effusion. Critical Notification Critical Value: No <Conclusion> The left ventricular systolic function is normal and the ejection fraction is within normal range. E stimated ejection fraction 60-65%. There is normal LV segmental wall motion. Doppler and Color Flow revealed mild tricuspid regurgitation. RVSP 30 mm Hg Signed by : Gonzalo Peter, Electronically Approved : 01/15/2021 12:42:15
== END ==
LOC: ECHO 12:51
PROVIDERS: ATTEND Internal Medicine Cardiovascular Disease
DX: I08.1 Rheumatic disorders of both mitral and tricuspid valves (principal); I10 Essential (primary) hypertension
CPT/HCPCS: 93306

== ENCOUNTER → 2022-01-26 | Outpatient (CLI) | payer MEDICARE ==
--- NOTE | 2022-01-26 17:17 | CARD ---
MR#: [id number] Date of Study: 01/26/2022 Ordering Physician: JETT CASAS, Referring Physician: Tigist BALDWIN: ARNAV NULL [facility] APPROVED REPORT EXAM: Two-dimensional and M-mode echocardiogram with Doppler and color Doppler. Other Information Quality : GoodHR: 58bpm Rhythm : NSR INDICATION Dizziness and Vertigo LEFT VENTRICLE The left ventricle is normal size. There is normal left ventricular wall thickness. The left ventricu lar systolic function is normal. LV ejection fraction of 55 to 60%. No regional wall motion abnormali ties noted. The left ventricular diastolic function is normal. No left ventricle thrombus noted on th is study. There is no ventricular septal defect visualized. There is no left ventricular aneurysm. Th ere is no mass noted in the left ventricle. RIGHT VENTRICLE The right ventricle is normal size. There is normal right ventricular wall thickness. The right ventr icular systolic function is normal. ATRIA The left atrium size is normal. The right atrium size is normal. The interatrial septum is intact wit h no evidence for an atrial septal defect or patent foramen ovale as noted on 2-D or Doppler imaging. AORTIC VALVE The aortic valve is normal in structure and function. Doppler and Color Flow revealed trace to mild a ortic regurgitation. There is no aortic valvular stenosis. There is no aortic valvular vegetation. MITRAL VALVE The mitral valve is normal in structure and function. There is no evidence of mitral valve prolapse. There is no mitral valve stenosis. Doppler and Color-flow revealed mild mitral regurgitation. TRICUSPID VALVE The tricuspid valve is normal in structure and function. Doppler and Color Flow revealed mild tricusp id regurgitation. There is no tricuspid valve prolapse or vegetation. There is no tricuspid valve swetha nosis. PULMONIC VALVE The pulmonary valve is normal in structure and function. There is no pulmonic valvular regurgitation. There is no pulmonic valvular stenosis. GREAT VESSELS The aortic root is normal in size. The ascending aorta is normal in size. The pulmonary artery is nor mal. The IVC is normal in size and collapses >50% with inspiration. PERICARDIAL EFFUSION There is no pleural effusion. The pericardium appears normal. Critical Notification Critical Value: No <Conclusion> The left ventricle is normal size. The left ventricular systolic function is normal. LV ejection fraction of 55 to 60%. Doppler and Color Flow revealed trace to mild aortic regurgitation. There is no aortic valvular stenosis. Doppler and Color-flow revealed mild mitral regurgitation. Doppler and Color Flow revealed mild tricuspid regurgitation. Signed by : Maurice Davison MD Electronically Approved : 01/26/2022 17:17:24
== END ==
LOC: ECHO 12:47
PROVIDERS: ATTEND Internal Medicine Cardiovascular Disease
DX: I08.3 Combined rheumatic disorders of mitral, aortic and tricuspid valves (principal); R42 Dizziness and giddiness
CPT/HCPCS: 93306; C8929